=== PATIENT | male | born 1960 | race American Indian/Alaskan Native ===

== ENCOUNTER 2016-08-15 01:31 | Emergency (ER) | payer MEDICARE | END 2016-08-15 02:15 | disposition left against medical advice (07) | LOC: ED 01:31 | DX: K08.89 Other specified disorders of teeth and supporting structures (principal); Z53.21 Procedure and treatment not carried out due to patient leaving prior to being seen by health care provider ==

== ENCOUNTER 2017-07-16 11:01 | Outpatient (CLI) | payer MEDICARE ==
[2017-07-16 11:56] LABS: BUN/Creatinine Ratio 10; Blood Urea Nitrogen 11 mg/dL (9-20); Calcium 8.6 mg/dL (8.4-10.2); Hemolysis Index 6
== END 2017-07-16 11:02 | disposition home or self-care (01) ==
LOC: LAB 11:01
PROVIDERS: ATTEND Internal Medicine Nephrology
DX: N18.3 Chronic kidney disease, stage 3 (moderate) (principal)
CPT/HCPCS: 36415; 80048

== ENCOUNTER 2018-11-04 08:53 | Inpatient (IN) | payer MEDICARE ==
[2018-11-04 10:04] LABS: Basophils # (Auto) 0.1 K/mm3 (0.0-0.1); Basophils % (Auto) 0.8 % (0.0-1.8); Eosinophils % (Auto) 0.6 % (0.0-4.3); Hematocrit 45.5 % (35.5-45.6); Hemoglobin 15.4 gm/dl (11.8-15.2); Lymphocytes # (Auto) 0.7 K/mm3 (1.2-5.4); Mean Corpuscular HGB Conc 34 % (32-34); Mean Corpuscular Volume 89 fl (84-94); Monocytes # (Auto) 0.3 K/mm3 (0.0-0.8); Monocytes % (Auto) 4.4 % (0.0-7.3); Platelet Count 244 K/mm3 (140-440); Red Blood Count 5.13 M/mm3 (3.65-5.03); Red Cell Distribution Width 13.3 % (13.2-15.2)
[2018-11-04 10:26] LABS: BUN/Creatinine Ratio 16; Blood Urea Nitrogen 18 mg/dL (9-20); Calcium 8.6 mg/dL (8.4-10.2); Hemolysis Index 15
[2018-11-04 10:40] LABS: INR 1.01 (0.87-1.13); Partial Thromboplastin Time 23.6 Sec. (24.2-36.6)
[2018-11-04 10:45] LABS: Alanine Aminotransferase 15 units/L (7-56); Albumin 4.2 g/dL (3.9-5); BUN/Creatinine Ratio 15; Blood Urea Nitrogen 18 mg/dL (9-20); Calcium 8.8 mg/dL (8.4-10.2); Hemolysis Index 8
[2018-11-04 10:52] LABS: Bilirubin,Urine NEG (Negative); Blood,Urine NEG (Negative); Color,Urine Yellow (Yellow); Mucus,Urine FEW /HPF; Protein,Urine <15 mg/dL mg/dL (Negative); Urobilinogen,Urine < 2.0 mg/dL (<2.0)
--- NOTE | 2018-11-04 10:52 | XRay Report ---
Single view chest: History: Altered mental status. Findings: Normal cardiomediastinal silhouette. Trachea is midline. Suspicion of emphysema. No acute changes Impression: Suspicion of COPD. No acute changes.
--- NOTE | 2018-11-04 10:58 | Cat Scan Report ---
CT scan of the IV contrast: History: Altered mental status. Findings Ventricles are normal in size and midline in location. Cavum septum pellucidum noted. Single small chronic lacunar infarct right and left basal ganglia. Evidence of mild cortical atrophy. No acute ischemia, hemorrhage or mass. No extra-axial fluid collection. Impression: Mild cortical atrophy. Chronic lacunar infarct right and left ganglia no acute intracranial abnormality.
--- NOTE | 2018-11-04 12:32 | Emergency Department Report ---
ED General Adult HPI - General Chief complaint: Altered Mental Status Stated complaint: WEAKNESS/AMS Time Seen by Provider: 11/04/18 09:30 Source: patient, EMS Mode of arrival: Stretcher Limitations: Physical Limitation - History of Present Illness Initial comments: Patient presents to the emergency department from a local skilled nursing for left- sided weakness. The patient has had a previous stroke in the past where he has suffered right sided deficits as a result of that. The patient states the symptoms have improved since arrival to the ED. Patient denies any chest pain, shortness breath, headache. -: Sudden Radiation: non-radiation Severity scale (0 -10): 0 Consistency: other (now improved) Improves with: none Associated Symptoms: denies other symptoms Treatments Prior to Arrival: none - Related Data Home Medications Medication Instructions Recorded Confirmed Last Taken ALBUTEROL Inhaler(NF) [VENTOLIN 1 puff IH Q6H PRN 11/04/18 11/04/18 Unknown Inhaler(NF)] Acetaminophen/Codeine [Tylenol 1 tab PO Q4HR PRN 11/04/18 11/04/18 Unknown /Codeine # 3 tab] Amantadine [Symmetrel] 100 mg PO BID 11/04/18 11/04/18 Unknown Ammonium Lactate [Lac-Hydrin 1 applicatio TP BID 11/04/18 11/04/18 Unknown Lotion] Clotrimazole/Betamethasone Dip 1 applic TP BID 11/04/18 11/04/18 Unknown [Clotrimazole-Betamethasone Lotion] Ferrous Sulfate [Feosol] 325 mg PO QDAY 11/04/18 11/04/18 Unknown Ibuprofen 800 mg PO Q4H PRN 11/04/18 11/04/18 Unknown Terbinafine HCl [LamiSIL] 250 mg PO DAILY 11/04/18 11/04/18 Unknown amLODIPine [Norvasc] 5 mg PO DAILY 11/04/18 11/04/18 Unknown Allergies Allergy/AdvReac Type Severity Reaction Status Date / Time No Known Allergies Allergy Unverified 06/27/16 14:39 ED Review of Systems ROS: Stated complaint: WEAKNESS/AMS Other details as noted in HPI Comment: All other systems reviewed and negative Constitutional: denies: chills, fever Eyes: denies: eye pain, eye discharge, vision change ENT: denies: ear pain, throat pain Respiratory: denies: cough, shortness of breath, wheezing Cardiovascular: denies: chest pain, palpitations Endocrine: no symptoms reported Gastrointestinal: denies: abdominal pain, nausea, diarrhea Genitourinary: denies: urgency, dysuria Musculoskeletal: denies: back pain, joint swelling, arthralgia Skin: denies: rash, lesions Neurological: weakness, numbness. denies: headache, paresthesias Psychiatric: denies: anxiety, depression Hematological/Lymphatic: denies: easy bleeding, easy bruising ED Past Medical Hx - Past Medical History Previous Medical History?: Yes Hx Hypertension: Yes Hx CVA: Yes (right sided weakness) Hx Diabetes: Yes - Surgical History Past Surgical History?: No - Social History Smoking Status: Former Smoker - Medications Home Medications: Home Medications Medication Instructions Recorded Confirmed Last Taken Type ALBUTEROL Inhaler(NF) [VENTOLIN 1 puff IH Q6H PRN 11/04/18 11/04/18 Unknown History Inhaler(NF)] Acetaminophen/Codeine [Tylenol 1 tab PO Q4HR PRN 11/04/18 11/04/18 Unknown History /Codeine # 3 tab] Amantadine [Symmetrel] 100 mg PO BID 11/04/18 11/04/18 Unknown History Ammonium Lactate [Lac-Hydrin 1 applicatio TP BID 11/04/18 11/04/18 Unknown History Lotion] Clotrimazole/Betamethasone Dip 1 applic TP BID 11/04/18 11/04/18 Unknown History [Clotrimazole-Betamethasone Lotion] Ferrous Sulfate [Feosol] 325 mg PO QDAY 11/04/18 11/04/18 Unknown History Ibuprofen 800 mg PO Q4H PRN 11/04/18 11/04/18 Unknown History Terbinafine HCl [LamiSIL] 250 mg PO DAILY 11/04/18 11/04/18 Unknown History amLODIPine [Norvasc] 5 mg PO DAILY 11/04/18 11/04/18 Unknown History ED Physical Exam - General Limitations: Physical Limitation General appearance: alert, in no apparent distress - Head Head exam: Present: atraumatic, normocephalic - Eye Eye exam: Present: normal appearance, PERRL, EOMI - ENT ENT exam: Present: mucous membranes moist - Neck Neck exam: Present: normal inspection - Respiratory Respiratory exam: Present: normal lung sounds bilaterally. Absent: respiratory distress, wheezes, rales - Cardiovascular Cardiovascular Exam: Present: regular rate, normal rhythm. Absent: systolic murmur, diastolic murmur, rubs, gallop - GI/Abdominal GI/Abdominal exam: Present: soft, normal bowel sounds. Absent: distended, tenderness - Rectal Rectal exam: Present: deferred - Extremities Exam Extremities exam: Present: normal inspection - Back Exam Back exam: Present: normal inspection - Neurological Exam Neurological exam: Present: alert, oriented X3, other (patient has prior right- sided weakness from previous stroke. Patient has left sided weakness with 4/5 strength in the upper extremity on left side) - Psychiatric Psychiatric exam: Present: normal affect, normal mood - Skin Skin exam: Present: warm, dry, intact, normal color. Absent: rash ED Course Vital Signs 11/04/18 11/04/18 11/04/18 09:00 09:01 09:30 Temperature 97.8 F Pulse Rate 51 L 68 45 L Respiratory 11 L 18 15 Rate Blood Pressure 137/90 137/90 145/91 O2 Sat by Pulse 100 100 Oximetry 11/04/18 11/04/18 11/04/18 10:00 10:31 11:00 Temperature Pulse Rate 67 73 56 L Respiratory 12 14 11 L Rate Blood Pressure 142/93 153/104 141/97 O2 Sat by Pulse 100 100 Oximetry 11/04/18 11:30 Temperature Pulse Rate 76 Respiratory 11 L Rate Blood Pressure 147/92 O2 Sat by Pulse Oximetry ED Medical Decision Making - Lab Data Result diagrams: 11/04/18 09:51 11/04/18 10:07 Lab Results 11/04/18 11/04/18 11/04/18 Range/Units 09:16 09:51 09:51 WBC 6.7 (4.5-11.0) K/mm3 RBC 5.13 H (3.65-5.03) M/mm3 Hgb 15.4 H (11.8-15.2) gm/dl Hct 45.5 (35.5-45.6) % MCV 89 (84-94) fl MCH 30 (28-32) pg MCHC 34 (32-34) % RDW 13.3 (13.2-15.2) % Plt Count 244 (140-440) K/mm3 Lymph % (Auto) 11.0 L (13.4-35.0) % Owen % (Auto) 4.4 (0.0-7.3) % Eos % (Auto) 0.6 (0.0-4.3) % Baso % (Auto) 0.8 (0.0-1.8) % Lymph # 0.7 L (1.2-5.4) K/mm3 Owen # 0.3 (0.0-0.8) K/mm3 Eos # 0.0 (0.0-0.4) K/mm3 Baso # 0.1 (0.0-0.1) K/mm3 Seg Neutrophils % 83.2 H (40.0-70.0) % Seg Neutrophils # 5.6 (1.8-7.7) K/mm3 PT (12.2-14.9) Sec. INR (0.87-1.13) APTT (24.2-36.6) Sec. Sodium 138 (137-145) mmol/L Potassium 4.1 (3.6-5.0) mmol/L Chloride 100.6 (98-107) mmol/L Carbon Dioxide 26 (22-30) mmol/L Anion Gap 16 mmol/L BUN 18 (9-20) mg/dL Creatinine 1.1 (0.8-1.5) mg/dL Estimated GFR > 60 ml/min BUN/Creatinine Ratio 16 % Glucose 130 H (75-100) mg/dL POC Glucose 100 (70-105) Lactic Acid (0.7-2.0) mmol/L Calcium 8.6 (8.4-10.2) mg/dL Total Bilirubin (0.1-1.2) mg/dL AST (5-40) units/L ALT (7-56) units/L Alkaline Phosphatase (35-129) units/L Ammonia (25-60) umol/L Troponin T (0.00-0.029) ng/mL Total Protein (6.3-8.2) g/dL Albumin (3.9-5) g/dL Albumin/Globulin Ratio % Urine Color (Yellow) Urine Turbidity (Clear) Urine pH (5.0-7.0) Ur Specific Franklin (1.003-1.030) Urine Protein (Negative) mg/dL Urine Glucose (UA) (Negative) mg/dL Urine Ketones (Negative) mg/dL Urine Blood (Negative) Urine Nitrite (Negative) Urine Bilirubin (Negative) Urine Urobilinogen (<2.0) mg/dL Ur Leukocyte Esterase (Negative) Urine WBC (Auto) (0.0-6.0) /HPF Urine RBC (Auto) (0.0-6.0) /HPF Urine Mucus /HPF Salicylates (2.8-20.0) mg/dL Acetaminophen (10.0-30.0) ug/mL 11/04/18 11/04/18 11/04/18 Range/Units 10:07 10:07 10:07 WBC (4.5-11.0) K/mm3 RBC (3.65-5.03) M/mm3 Hgb (11.8-15.2) gm/dl Hct (35.5-45.6) % MCV (84-94) fl MCH (28-32) pg MCHC (32-34) % RDW (13.2-15.2) % Plt Count (140-440) K/mm3 Lymph % (Auto) (13.4-35.0) % Owen % (Auto) (0.0-7.3) % Eos % (Auto) (0.0-4.3) % Baso % (Auto) (0.0-1.8) % Lymph # (1.2-5.4) K/mm3 Owen # (0.0-0.8) K/mm3 Eos # (0.0-0.4) K/mm3 Baso # (0.0-0.1) K/mm3 Seg Neutrophils % (40.0-70.0) % Seg Neutrophils # (1.8-7.7) K/mm3 PT 13.9 (12.2-14.9) Sec. INR 1.01 (0.87-1.13) APTT 23.6 L (24.2-36.6) Sec. Sodium 140 (137-145) mmol/L Potassium 4.7 (3.6-5.0) mmol/L Chloride 102.8 (98-107) mmol/L Carbon Dioxide 27 (22-30) mmol/L Anion Gap 15 mmol/L BUN 18 (9-20) mg/dL Creatinine 1.2 (0.8-1.5) mg/dL Estimated GFR > 60 ml/min BUN/Creatinine Ratio 15 % Glucose 127 H (75-100) mg/dL POC Glucose (70-105) Lactic Acid 1.40 (0.7-2.0) mmol/L Calcium 8.8 (8.4-10.2) mg/dL Total Bilirubin 0.50 (0.1-1.2) mg/dL AST 17 (5-40) units/L ALT 15 (7-56) units/L Alkaline Phosphatase 141 H (35-129) units/L Ammonia (25-60) umol/L Troponin T < 0.010 (0.00-0.029) ng/mL Total Protein 6.8 (6.3-8.2) g/dL Albumin 4.2 (3.9-5) g/dL Albumin/Globulin Ratio 1.6 % Urine Color (Yellow) Urine Turbidity (Clear) Urine pH (5.0-7.0) Ur Specific Franklin (1.003-1.030) Urine Protein (Negative) mg/dL Urine Glucose (UA) (Negative) mg/dL Urine Ketones (Negative) mg/dL Urine Blood (Negative) Urine Nitrite (Negative) Urine Bilirubin (Negative) Urine Urobilinogen (<2.0) mg/dL Ur Leukocyte Esterase (Negative) Urine WBC (Auto) (0.0-6.0) /HPF Urine RBC (Auto) (0.0-6.0) /HPF Urine Mucus /HPF Salicylates (2.8-20.0) mg/dL Acetaminophen (10.0-30.0) ug/mL 11/04/18 11/04/18 11/04/18 Range/Units 10:07 10:07 10:07 WBC (4.5-11.0) K/mm3 RBC (3.65-5.03) M/mm3 Hgb (11.8-15.2) gm/dl Hct (35.5-45.6) % MCV (84-94) fl MCH (28-32) pg MCHC (32-34) % RDW (13.2-15.2) % Plt Count (140-440) K/mm3 Lymph % (Auto) (13.4-35.0) % Owen % (Auto) (0.0-7.3) % Eos % (Auto) (0.0-4.3) % Baso % (Auto) (0.0-1.8) % Lymph # (1.2-5.4) K/mm3 Owen # (0.0-0.8) K/mm3 Eos # (0.0-0.4) K/mm3 Baso # (0.0-0.1) K/mm3 Seg Neutrophils % (40.0-70.0) % Seg Neutrophils # (1.8-7.7) K/mm3 PT (12.2-14.9) Sec. INR (0.87-1.13) APTT (24.2-36.6) Sec. Sodium (137-145) mmol/L Potassium (3.6-5.0) mmol/L Chloride (98-107) mmol/L Carbon Dioxide (22-30) mmol/L Anion Gap mmol/L BUN (9-20) mg/dL Creatinine (0.8-1.5) mg/dL Estimated GFR ml/min BUN/Creatinine Ratio % Glucose (75-100) mg/dL POC Glucose (70-105) Lactic Acid (0.7-2.0) mmol/L Calcium (8.4-10.2) mg/dL Total Bilirubin (0.1-1.2) mg/dL AST (5-40) units/L ALT (7-56) units/L Alkaline Phosphatase (35-129) units/L Ammonia 25.0 (25-60) umol/L Troponin T (0.00-0.029) ng/mL Total Protein (6.3-8.2) g/dL Albumin (3.9-5) g/dL Albumin/Globulin Ratio % Urine Color (Yellow) Urine Turbidity (Clear) Urine pH (5.0-7.0) Ur Specific Franklin (1.003-1.030) Urine Protein (Negative) mg/dL Urine Glucose (UA) (Negative) mg/dL Urine Ketones (Negative) mg/dL Urine Blood (Negative) Urine Nitrite (Negative) Urine Bilirubin (Negative) Urine Urobilinogen (<2.0) mg/dL Ur Leukocyte Esterase (Negative) Urine WBC (Auto) (0.0-6.0) /HPF Urine RBC (Auto) (0.0-6.0) /HPF Urine Mucus /HPF Salicylates < 0.3 L (2.8-20.0) mg/dL Acetaminophen < 5.0 L (10.0-30.0) ug/mL 11/04/18 Range/Units Unknown WBC (4.5-11.0) K/mm3 RBC (3.65-5.03) M/mm3 Hgb (11.8-15.2) gm/dl Hct (35.5-45.6) % MCV (84-94) fl MCH (28-32) pg MCHC (32-34) % RDW (13.2-15.2) % Plt Count (140-440) K/mm3 Lymph % (Auto) (13.4-35.0) % Owen % (Auto) (0.0-7.3) % Eos % (Auto) (0.0-4.3) % Baso % (Auto) (0.0-1.8) % Lymph # (1.2-5.4) K/mm3 Owen # (0.0-0.8) K/mm3 Eos # (0.0-0.4) K/mm3 Baso # (0.0-0.1) K/mm3 Seg Neutrophils % (40.0-70.0) % Seg Neutrophils # (1.8-7.7) K/mm3 PT (12.2-14.9) Sec. INR (0.87-1.13) APTT (24.2-36.6) Sec. Sodium (137-145) mmol/L Potassium (3.6-5.0) mmol/L Chloride (98-107) mmol/L Carbon Dioxide (22-30) mmol/L Anion Gap mmol/L BUN (9-20) mg/dL Creatinine (0.8-1.5) mg/dL Estimated GFR ml/min BUN/Creatinine Ratio % Glucose (75-100) mg/dL POC Glucose (70-105) Lactic Acid (0.7-2.0) mmol/L Calcium (8.4-10.2) mg/dL Total Bilirubin (0.1-1.2) mg/dL AST (5-40) units/L ALT (7-56) units/L Alkaline Phosphatase (35-129) units/L Ammonia (25-60) umol/L Troponin T (0.00-0.029) ng/mL Total Protein (6.3-8.2) g/dL Albumin (3.9-5) g/dL Albumin/Globulin Ratio % Urine Color Yellow (Yellow) Urine Turbidity Clear (Clear) Urine pH 5.0 (5.0-7.0) Ur Specific Franklin 1.012 (1.003-1.030) Urine Protein <15 mg/dl (Negative) mg/dL Urine Glucose (UA) Neg (Negative) mg/dL Urine Ketones Tr (Negative) mg/dL Urine Blood Neg (Negative) Urine Nitrite Neg (Negative) Urine Bilirubin Neg (Negative) Urine Urobilinogen < 2.0 (<2.0) mg/dL Ur Leukocyte Esterase Neg (Negative) Urine WBC (Auto) 1.0 (0.0-6.0) /HPF Urine RBC (Auto) 2.0 (0.0-6.0) /HPF Urine Mucus Few /HPF Salicylates (2.8-20.0) mg/dL Acetaminophen (10.0-30.0) ug/mL - Radiology Data Radiology results: report reviewed Critical care attestation.: If time is entered above; I have spent that time in minutes in the direct care of this critically ill patient, excluding procedure time. ED Disposition Clinical Impression: Left-sided weakness Disposition: -09 OP ADMIT IP TO THIS HOSP Is pt being admited?: Yes Does the pt Need Aspirin: Yes Condition: Fair Referrals: MADDY FORTUNE MD [Primary Care Provider] - 3-5 Days - Assessment Assessment Interval: Baseline - Level of Consciousness 1a. Level of Consciousness: alert/keenly responsive - LOC Questions 1b. LOC Questions: answers both correctly - LOC Command 1c. LOC Commands: performs tasks correctly - Best Gaze 2. Best Gaze: normal - Visual 3. Visual: no visual loss - Facial Palsy 4. Facial Palsy: normal symmetrical movement - Motor Arm 5a. Motor Arm Left: no drift 5b. Motor Arm Right: no gravity effort - Motor Leg 6a. Motor Leg Left: no drift 6b. Motor Leg Right: no gravity effort - Limb Ataxia 7. Limb Ataxia: absent - Sensory 8. Sensory: normal - Best Language 9. Best Language: mild/moderate aphasia - Dysarthria 10. Dysarthria: mild/moderate dysarthria - Extinction and Inattention 11. Extinction/Inattention: no abnormality - Scoring Total Score: 8 Stroke Severity: Moderate Stroke
[2018-11-04] MEDS ORDERED: BABY ASPIRIN PO ONE (13:06)
--- NOTE | 2018-11-04 13:07 | History and Physical Report ---
History of Present Illness Chief complaint: His left arm is weak History of present illness: 58 YO Male Personal Assisted resident with CVA complicated by RHP and Dysarthria, HTN, DM, Debility presents to ED for evaluation. Pt has difficulty speaking, but his sister is at bedside and assists with communication. As per sister, the patient experienced weakness in his Left arm and increased in difficulty speaking, as well as a delayed verbal response. Pt was in his usual state of health at bedtime around 2100 hrs. Pt and [facility] staff are unsure of time of onset of symptoms, but patient was noticed to have symptoms around breakfast time this morning. EMS notified, and upon arrival the patient was found to have neurologic deficit and transported to [facility]. Pt seen and evaluated in ED and found to have symptoms consistent with CVA. Pt adnitted to telemetry and initiated on CVA protocol. Neurology team consulted in ED. Pt is outside therapeutic window for TPA at time of my exam. No reports of fever, chills, CP, Palpitations, Seizures, vertigo, Past History Past Medical History: diabetes, hypertension, hyperlipidemia Past Surgical History: No surgical history, Other (reviewed) Social history: single. denies: smoking, alcohol abuse, prescription drug abuse Family history: diabetes, hypertension Medications and Allergies Allergies Allergy/AdvReac Type Severity Reaction Status Date / Time No Known Allergies Allergy Unverified 06/27/16 14:39 Home Medications Medication Instructions Recorded Confirmed Last Taken Type ALBUTEROL Inhaler(NF) [VENTOLIN 1 puff IH Q6H PRN 11/04/18 11/04/18 Unknown History Inhaler(NF)] Acetaminophen/Codeine [Tylenol 1 tab PO Q4HR PRN 11/04/18 11/04/18 Unknown History /Codeine # 3 tab] Amantadine [Symmetrel] 100 mg PO BID 11/04/18 11/04/18 Unknown History Ammonium Lactate [Lac-Hydrin 1 applicatio TP BID 11/04/18 11/04/18 Unknown History Lotion] Clotrimazole/Betamethasone Dip 1 applic TP BID 11/04/18 11/04/18 Unknown History [Clotrimazole-Betamethasone Lotion] Ferrous Sulfate [Feosol] 325 mg PO QDAY 11/04/18 11/04/18 Unknown History Ibuprofen 800 mg PO Q4H PRN 11/04/18 11/04/18 Unknown History Terbinafine HCl [LamiSIL] 250 mg PO DAILY 11/04/18 11/04/18 Unknown History amLODIPine [Norvasc] 5 mg PO DAILY 11/04/18 11/04/18 Unknown History Review of Systems ROS unobtainable: due to mental status Exam - Constitutional Vitals: Temp Pulse Resp BP Pulse Ox 97.8 F 76 11 L 147/92 100 11/04/18 09:01 11/04/18 11:30 11/04/18 11:30 11/04/18 11:30 11/04/18 10:31 General appearance: Present: mild distress - EENT Eyes: Present: PERRL ENT: hearing intact, clear oral mucosa - Neck Neck: Present: supple, normal ROM - Respiratory Respiratory effort: normal Respiratory: bilateral: CTA - Cardiovascular Heart Sounds: Present: S1 & S2. Absent: rub, click - Extremities Extremities: pulses symmetrical, No edema Peripheral Pulses: within normal limits - Abdominal General gastrointestinal: Present: soft, non-tender, non-distended, normal bowel sounds Male genitourinary: Present: normal - Integumentary Integumentary: Present: clear, dry - Musculoskeletal Musculoskeletal: right sided weakness, left sided weakness - Psychiatric Psychiatric: no intact judgment & insight, no memory intact - Neurologic Neurologic: CNII-XII intact, focal deficits, no moves all extremities, no gait normal Results - Labs CBC & Chem 7: 11/04/18 09:51 11/04/18 10:07 Labs: Abnormal lab results 11/04/18 11/04/18 11/04/18 Range/Units 09:51 09:51 10:07 RBC 5.13 H (3.65-5.03) M/mm3 Hgb 15.4 H (11.8-15.2) gm/dl Lymph % (Auto) 11.0 L (13.4-35.0) % Lymph # 0.7 L (1.2-5.4) K/mm3 Seg Neutrophils % 83.2 H (40.0-70.0) % APTT 23.6 L (24.2-36.6) Sec. Glucose 130 H (75-100) mg/dL Alkaline Phosphatase (35-129) units/L Salicylates (2.8-20.0) mg/dL Acetaminophen (10.0-30.0) ug/mL 11/04/18 11/04/18 11/04/18 Range/Units 10:07 10:07 10:07 RBC (3.65-5.03) M/mm3 Hgb (11.8-15.2) gm/dl Lymph % (Auto) (13.4-35.0) % Lymph # (1.2-5.4) K/mm3 Seg Neutrophils % (40.0-70.0) % APTT (24.2-36.6) Sec. Glucose 127 H (75-100) mg/dL Alkaline Phosphatase 141 H (35-129) units/L Salicylates < 0.3 L (2.8-20.0) mg/dL Acetaminophen < 5.0 L (10.0-30.0) ug/mL Assessment and Plan - Patient Problems (1) CVA (cerebral vascular accident) Current Visit: Yes Status: Acute Qualifiers: Precerebral and cerebral artery: middle cerebral artery Laterality of affected vessel: left Plan to address problem: Admit to telemetry: CVA protocol: CT Head, MRI Brain, MRA Brain, Echo, Carotid Doppler PT/OT/Speech Therapy, Seizure Precautions, Aspiration precautions, Antiplatelet therapy, lipid panel, statin therapy (2) Right hemiparesis Current Visit: Yes Status: Acute Plan to address problem: PT consulted, supportive care. (3) HTN (hypertension) Current Visit: Yes Status: Acute Qualifiers: Hypertension type: essential hypertension Qualified Code(s): I10 - Essential (primary) hypertension Plan to address problem: Monitor BP q shift, continue medical management, (4) HLD (hyperlipidemia) Current Visit: Yes Status: Acute Qualifiers: Hyperlipidemia type: mixed hyperlipidemia Qualified Code(s): E78.2 - Mixed hyperlipidemia Plan to address problem: Statin therapy, lipid panel, low cholesterol diet (5) DVT prophylaxis Current Visit: Yes Status: Acute Plan to address problem: SCD to BLE while in bed,
[2018-11-04] MEDS ORDERED: MILK OF MAGNESIA PO PRN (13:08)
[2018-11-04] MEDS ORDERED: ZOFRAN IV PRN (13:08)
[2018-11-04] MEDS ORDERED: DULCOLAX PR PRN (13:08)
[2018-11-04] MEDS ORDERED: TYLENOL PO PRN (13:08)
[2018-11-04] MEDS ORDERED: PHENERGAN PR PRN (13:08)
[2018-11-04] MEDS ORDERED: REGLAN PO PRN (13:08)
[2018-11-04] MEDS ORDERED: PROVENTIL IH PRN (13:08)
[2018-11-04] MEDS ORDERED: TYLENOL #3 PO PRN (13:14)
[2018-11-04] MEDS ORDERED: IBUPROFEN PO PRN (13:14)
--- NOTE | 2018-11-04 15:55 | Magnetic Resonance Report ---
MRI BRAIN WITHOUT CONTRAST: 11/04/18 13:08:00 CLINICAL: Stroke. COMPARISON: 11/04/18 CT head TECHNIQUE: Axial diffusion, T1, T2, gradient echo T2*, coronal and axial FLAIR and sagittal T1 sequences on a 1.5 [place] magnet. FINDINGS: The ventricles and sulci are large for age. Both cerebral and cerebellar sulci enlarged and there is greater enlargement of the left temporal lobe sulci. Restricted diffusion involves the inferior medial left cerebellum and measures 1.8 cm. A 3 mm focus of restricted diffusion in the posterior left medulla. No other restricted diffusion. No mass or mass effect. No hemorrhage, edema or extra-axial collection. Normal pituitary and optic chiasm. The left midbrain is small and demonstrates heterogeneous signal on FLAIR and hyperintense signal on T2. Bilateral basal ganglia chronic lacunar infarcts. Extensive bilateral subcortical multifocal white matter hyperintensities FLAIR and T2. Bilateral basal ganglia chronic lacunar infarcts. Intact vascular flow voids. Normal sinuses. The orbits, and soft tissues are normal. Normal calvarium and skull base. IMPRESSION: 1. Acute/subacute nonhemorrhagic infarcts involving the left inferior medial cerebellum and the left medulla oblongata. 2. Old left temporal lobe ischemia with Wallerian degeneration of the left brainstem. 3. Moderate cerebral and cerebellar cortical atrophy and extensive chronic white matter microangiopathy.
--- NOTE | 2018-11-04 16:06 | Magnetic Resonance Report ---
MRA HEAD WITHOUT CONTRAST: 11/04/18 13:08:00 CLINICAL: Stroke. TECHNIQUE: Axial 3-D [id number] MR angiography of the [place] with review of axial source images. FINDINGS: Intact [place] with no aneurysm or high-grade stenosis. Symmetric blood flow in the anterior, middle and posterior cerebral arteries. Normal basilar and right vertebral arteries. No left vertebral artery identified. 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
[2018-11-04 16:24] LABS: Chol/HDL Ratio 2.75 %
--- NOTE | 2018-11-04 16:47 | Vascular Lab Report ---
PROCEDURE: VL CAROTID DUPLEX BILAT TECHNIQUE: Ultrasound of the bilateral carotid arteries. Reported ICA Stenosis % per the NASCET crite ludmila. HISTORY: Previous stroke , hypertension and right-sided weakness COMPARISONS: None FINDINGS: PLAQUE DISTRIBUTION: There is minimal plaque formation in the right carotid bulb extending into the o rigin and proximal segment of the internal carotid artery. Mild plaque formation in the proximal left internal carotid artery is noted. VELOCITIES: RIGHT ICA peak systolic velocity (cm/sec): 82 ICA end diastolic velocity (cm/sec): 34 CCA peak systolic velocity (cm/sec): 58 ECA peak systolic velocity (cm/sec): 44 ICA/CCA systolic velocity ratio (cm/sec): 1.4 Right vertebral: Antegrade ICA STENOSIS ESTIMATION: < 50 % LEFT ICA peak systolic velocity (cm/sec): 61 ICA end diastolic velocity (cm/sec): 24 CCA peak systolic velocity (cm/sec): 56 ECA peak systolic velocity (cm/sec): 29 ICA/CCA systolic velocity ratio (cm/sec): 1.09 Left vertebral: Antegrade ICA STENOSIS ESTIMATION: < 50 % IMPRESSION: No clinically significant areas of stenosis noted bilaterally. ICA Stenosis % per the NASCET criteria is < 50 % on the right and < 50 % on the left. This document is electronically signed by Inés Easton MD., Nov 04 2018 04:46:13 PM ET
--- NOTE | 2018-11-04 17:43 | Consultation ---
History of Present Illness Consult date: 11/04/18 Chief complaint: worsening slurred speech History of present illness: This is a 58 YO M with RHP since previous stroke in 2013 who was noted to be "different" by his H so he was transpoprted to the ED for evaluation. Sister is at bedside and gives the history. Pt is compliant with meds per the sister. Past History Past Medical History: diabetes, hypertension, hyperlipidemia Past Surgical History: No surgical history, Other (reviewed) Social history: single. denies: smoking, alcohol abuse, prescription drug abuse Family history: diabetes, hypertension Medications and Allergies Allergies Allergy/AdvReac Type Severity Reaction Status Date / Time No Known Allergies Allergy Unverified 06/27/16 14:39 Home Medications Medication Instructions Recorded Confirmed Last Taken Type ALBUTEROL Inhaler(NF) [VENTOLIN 1 puff IH Q6H PRN 11/04/18 11/04/18 Unknown History Inhaler(NF)] Acetaminophen/Codeine [Tylenol 1 tab PO Q4HR PRN 11/04/18 11/04/18 Unknown History /Codeine # 3 tab] Amantadine [Symmetrel] 100 mg PO BID 11/04/18 11/04/18 Unknown History Ammonium Lactate [Lac-Hydrin 1 applicatio TP BID 11/04/18 11/04/18 Unknown History Lotion] Clotrimazole/Betamethasone Dip 1 applic TP BID 11/04/18 11/04/18 Unknown History [Clotrimazole-Betamethasone Lotion] Ferrous Sulfate [Feosol] 325 mg PO QDAY 11/04/18 11/04/18 Unknown History Ibuprofen 800 mg PO Q4H PRN 11/04/18 11/04/18 Unknown History Terbinafine HCl [LamiSIL] 250 mg PO DAILY 11/04/18 11/04/18 Unknown History amLODIPine [Norvasc] 5 mg PO DAILY 11/04/18 11/04/18 Unknown History Active Meds: Active Medications Acetaminophen (Tylenol) 650 mg PO Q4H PRN PRN Reason: Pain, Mild (1-3) Acetaminophen/Codeine Phosphate (Tylenol #3) 1 tab PO Q4HR PRN PRN Reason: Pain Albuterol (Proventil) 2.5 mg IH Q3HRT PRN PRN Reason: Shortness Of Breath Amantadine HCl (Symmetrel) 100 mg PO BID [facility] Aspirin (Aspirin) 325 mg PO QDAY [facility] Atorvastatin Calcium (Lipitor) 40 mg PO QHS MAK Bisacodyl (Dulcolax) 10 mg MO QDAY PRN PRN Reason: Constipation Clotrimazole (Clotrimazole/Betamethasone) 1 applic TP BID [facility] Enoxaparin Sodium (Lovenox) 40 mg SUB-Q QDAY@2200 MAK Ferrous Sulfate (Feosol) 325 mg PO QDAY MAK Ibuprofen (Motrin) 800 mg PO Q4H PRN PRN Reason: Pain, Moderate (4-6) Lactic Acid (Lac-Hydrin) 1 applic TP BID [facility] Magnesium Hydroxide (Milk Of Magnesia) 30 ml PO Q4H PRN PRN Reason: Constipation Metoclopramide HCl (Reglan) 10 mg PO Q6H PRN PRN Reason: Nausea And Vomiting Miscellaneous Medication (Terbinafine Hcl [Lamisil]) 250 mg PO DAILY [facility] Ondansetron HCl (Zofran) 4 mg IV Q8H PRN PRN Reason: Nausea And Vomiting Last Admin: 11/04/18 17:26 Dose: 4 mg Documented by: Promethazine HCl (Phenergan) 25 mg MO Q6H PRN PRN Reason: Nausea And Vomiting Sodium Chloride (Sodium Chloride Flush Syringe 10 Ml) 10 ml IV PRN PRN PRN Reason: LINE FLUSH Review of Systems Neurological: other (dysarthria) Physical Examination - Vital Signs Vital Signs: Vital Signs Pulse Resp BP 51 L 11 L 137/90 11/04/18 09:00 11/04/18 09:00 11/04/18 09:00 - Constitutional General appearance: comfortable - EENT EENT: Present: PERRL, mucous membranes moist - Respiratory Respiratory: Present: lungs clear - Gastrointestinal Gastrointestinal: Present: normoactive bowel sounds - Integumentary Integumentary: Present: normal - Neurologic Speech examination: intact Motor examination - right side: 15: biceps, triceps, wrist flexion, wrist extension, physician assistant surgery, hip flexors, knee extensors, dorsiflexion, toe extension (EHL), plantarflexion Motor examination - left side: 45: biceps, triceps, wrist flexion, wrist extension, physician assistant surgery, hip flexors, knee extensors, dorsiflexion, toe extension (EHL), plantarflexion Reflex and gait examination: other (wheelchair bound) - Level of Consciousness 1a. Level of Consciousness: alert/keenly responsive - LOC Questions 1b. LOC Questions: answers both correctly - LOC Command 1c. LOC Commands: performs tasks correctly - Best Gaze 2. Best Gaze: normal - Visual 3. Visual: no visual loss - Facial Palsy 4. Facial Palsy: minor paralysis - Motor Arm 5a. Motor Arm Left: drift 5b. Motor Arm Right: no movement - Motor Leg 6a. Motor Leg Left: drift 6b. Motor Leg Right: no gravity effort - Limb Ataxia 7. Limb Ataxia: present 2 limbs - Sensory 8. Sensory: normal - Best Language 9. Best Language: mute/global aphasia - Dysarthria 10. Dysarthria: mild/moderate dysarthria - Extinction and Inattention 11. Extinction/Inattention: no abnormality - Scoring Total Score: 16 Stroke Severity: Moderate to Severe Stroke Results - Laboratory Findings CBC and BMP: 11/04/18 09:51 11/04/18 10:07 Abnormal Lab Findings: Abnormal Labs 11/04/18 11/04/18 11/04/18 09:51 09:51 10:07 RBC 5.13 H Hgb 15.4 H Lymph % (Auto) 11.0 L Lymph # 0.7 L Seg Neutrophils % 83.2 H APTT 23.6 L Glucose 130 H Alkaline Phosphatase HDL Cholesterol Salicylates Acetaminophen 11/04/18 11/04/18 11/04/18 10:07 10:07 10:07 RBC Hgb Lymph % (Auto) Lymph # Seg Neutrophils % APTT Glucose 127 H Alkaline Phosphatase 141 H HDL Cholesterol Salicylates < 0.3 L Acetaminophen < 5.0 L 11/04/18 13:13 RBC Hgb Lymph % (Auto) Lymph # Seg Neutrophils % APTT Glucose Alkaline Phosphatase HDL Cholesterol 62 H Salicylates Acetaminophen - Diagnostic Findings Additional findings: MRI Brain left cerebellar and medulla acute strokes. old left temporal stroke MRA left vertebral artery occlusion Assessment and Plan This is a 58 YO M with acute stroke and left vertebral artery occlusion. Recommend: CTA neck to verify occlusion aspirin and plavix short term, continue lipitor, vte prophylaxis PT/OT/ST echo and carotids LDL noted, will follow on a1c Continue care for all medical issues as you are doing POC discussed with pt's sister at the bedside
[2018-11-04] MEDS: LOVENOX SUB-Q SCH (21:53)
[2018-11-04] MEDS: PLAVIX PO SCH (21:54)
[2018-11-04] MEDS ORDERED: [UNRECOGNIZED DRUG - OTHER] TP SCH (22:00)
[2018-11-04] MEDS ORDERED: BETAMETHASONE DIP TP SCH (22:00)
[2018-11-04] MEDS ORDERED: CLOTRIMAZOLE TP SCH (22:00)
[2018-11-04] MEDS: SODIUM CHLORIDE FLUSH SYRINGE 10 ML IV PRN (22:01)
[2018-11-04] MEDS: LAC-HYDRIN TP SCH (23:01)
[2018-11-04] MEDS: SYMMETREL PO SCH (23:01)
[2018-11-04] MEDS: CLOTRIMAZOLE/BETAMETHASONE TP SCH (23:02)
[2018-11-05] MEDS ORDERED: TERBINAFINE HCL 250 MG PO SCH (10:00)
[2018-11-05] MEDS: PLAVIX PO SCH (10:28)
[2018-11-05] MEDS: ASPIRIN PO SCH (10:28)
[2018-11-05] MEDS: CLOTRIMAZOLE/BETAMETHASONE TP SCH ×2 (10:28→22:02)
[2018-11-05] MEDS: FEOSOL PO SCH (10:28)
[2018-11-05] MEDS: LAC-HYDRIN TP SCH ×2 (10:29→22:02)
[2018-11-05] MEDS: SYMMETREL PO SCH ×2 (11:03→22:01)
--- NOTE | 2018-11-05 15:49 | Progress Note ---
Assessment and Plan Assessment and plan: Patient is a 58 yo man from [facility] with a history of CVA complicated by RHP, Dysarthria, HTN, and DM who [facility] with left sided weakness. Pt is outside therapeutic window for TPA * 2D ECHO conclusions left ventricular chamber size is normal, estimated EF 50- 55%, trace MR, right heart chambers mildly dilated, mild to moderate TR, mild pulmonary hypertension, RVSP calculated at 34mmHg, negative bubble study, technically difficult * CT head Impression: Mild cortical atrophy. Chronic lacunar infarct right and left ganglia no acute intracranial abnormality. * MRI brain wo contrast IMPRESSION: 1. Acute/subacute nonhemorrhagic infarcts involving the left inferior medial cerebellum and the left medulla oblongata. 2. Old left temporal lobe ischemia with [place] degeneration of the left brainstem. 3. Moderate cerebral and cerebellar cortical atrophy and extensive chronic white matter microangiopathy. * MRA head wo contrast IMPRESSION: Suspect left vertebral artery occlusion. * Carotid Duplex Bilateral IMPRESSION: No clinically significant areas of stenosis noted bilaterally. ICA Stenosis % per the NASCET criteria is < 50 % on the right and < 50 % on the left. * pCXR Impression: Suspicion of COPD. No acute changes. (1) CVA (cerebral vascular accident) Current Visit: Yes Status: Acute Qualifiers: Precerebral and cerebral artery: middle cerebral artery Laterality of affected vessel: left Plan to address problem: Admit to telemetry: CVA protocol: CT Head, MRI Brain, MRA Brain, Echo, Carotid Doppler PT/OT/Speech Therapy, Seizure Precautions, Aspiration precautions, Antiplatelet therapy, lipid panel, statin therapy (2) Right hemiparesis Current Visit: Yes Status: Acute Plan to address problem: PT consulted, supportive care. (3) HTN (hypertension) Current Visit: Yes Status: Acute Qualifiers: Hypertension type: essential hypertension Qualified Code(s): I10 - Essential (primary) hypertension Plan to address problem: Monitor BP q shift, continue medical management, (4) HLD (hyperlipidemia) Current Visit: Yes Status: Acute Qualifiers: Hyperlipidemia type: mixed hyperlipidemia Qualified Code(s): E78.2 - Mixed hyperlipidemia Plan to address problem: Statin therapy, lipid panel, low cholesterol diet (5) DVT prophylaxis Current Visit: Yes Status: Acute Plan to address problem: SCD to BLE while in bed, CTA neck pending History Interval history: Patient was seen and examined. Follow-up on current diagnosis of CVA. No overnight events reported to me. Patient denies any chest pain, shortness breath, nausea/vomiting or severe headaches. Imaging, nursing note, chart, labs and old chart reviewed. Discussed with patient and sister Rochelle at bedside Hospitalist Physical - Physical exam Narrative exam: Gen: thin frail, chronic disable NAD, Awake, Alert, Orientated HEENT: NCAT, EOMI, PERRL, OP Clear Neck: supple, no adenopathy, no thyromegaly, no JVD CVS/Heart: RRR, normal S1S2, pulses present bilaterally Chest/Lungs: CTA B, Symmetrical chest expansion, good air entry bilaterally GI/Abdomen: soft, NTND, good bowel sounds, no guarding or rebound /Bladder: no suprapubic tenderness, no CVA or paraspinal tenderness Extermity/Skin: no c/c/e, no obvious rash MSK: FROM x 3, old right hemiparesis with contracture Neuro: CN 2-12 grossly intact except dyarthria, new focal deficits, left sided weakness with left drift Psych: calm - Constitutional Vitals: Temp Pulse Resp BP Pulse Ox 98.1 F 83 18 112/83 99 11/05/18 07:40 11/05/18 13:01 11/05/18 07:40 11/05/18 13:01 11/05/18 13:01 General appearance: Absent: mild distress Results - Labs CBC & Chem 7: 11/04/18 09:51 11/04/18 10:07 Labs: Laboratory Last Values WBC 6.7 K/mm3 (4.5-11.0) 11/04/18 09:51 RBC 5.13 M/mm3 (3.65-5.03) H 11/04/18 09:51 Hgb 15.4 gm/dl (11.8-15.2) H 11/04/18 09:51 Hct 45.5 % (35.5-45.6) 11/04/18 09:51 MCV 89 fl (84-94) 11/04/18 09:51 MCH 30 pg (28-32) 11/04/18 09:51 MCHC 34 % (32-34) 11/04/18 09:51 RDW 13.3 % (13.2-15.2) 11/04/18 09:51 Plt Count 244 K/mm3 (140-440) 11/04/18 09:51 Lymph % (Auto) 11.0 % (13.4-35.0) L 11/04/18 09:51 [place] % (Auto) 4.4 % (0.0-7.3) 11/04/18 09:51 Eos % (Auto) 0.6 % (0.0-4.3) 11/04/18 09:51 Baso % (Auto) 0.8 % (0.0-1.8) 11/04/18 09:51 Lymph # 0.7 K/mm3 (1.2-5.4) L 11/04/18 09:51 [place] # 0.3 K/mm3 (0.0-0.8) 11/04/18 09:51 Eos # 0.0 K/mm3 (0.0-0.4) 11/04/18 09:51 Baso # 0.1 K/mm3 (0.0-0.1) 11/04/18 09:51 Seg Neutrophils % 83.2 % (40.0-70.0) H 11/04/18 09:51 Seg Neutrophils # 5.6 K/mm3 (1.8-7.7) 11/04/18 09:51 PT 13.9 Sec. (12.2-14.9) 11/04/18 10:07 INR 1.01 (0.87-1.13) 11/04/18 10:07 APTT 23.6 Sec. (24.2-36.6) L 11/04/18 10:07 Sodium 140 mmol/L (137-145) 11/04/18 10:07 Potassium 4.7 mmol/L (3.6-5.0) 11/04/18 10:07 Chloride 102.8 mmol/L (98-107) 11/04/18 10:07 Carbon Dioxide 27 mmol/L (22-30) 11/04/18 10:07 15 mmol/L 11/04/18 10:07 BUN 18 mg/dL (9-20) 11/04/18 10:07 1.2 mg/dL (0.8-1.5) 11/04/18 10:07 Estimated GFR > 60 ml/min 11/04/18 10:07 15 % 11/04/18 10:07 Glucose 127 mg/dL (75-100) H 11/04/18 10:07 POC Glucose 100 (70-105) 11/04/18 09:16 4.9 % (4-6) 11/04/18 20:26 Lactic Acid 1.40 mmol/L (0.7-2.0) 11/04/18 10:07 Calcium 8.8 mg/dL (8.4-10.2) 11/04/18 10:07 0.50 mg/dL (0.1-1.2) 11/04/18 10:07 AST 17 units/L (5-40) 11/04/18 10:07 ALT 15 units/L (7-56) 11/04/18 10:07 141 units/L (35-129) H 11/04/18 10:07 25.0 umol/L (25-60) 11/04/18 10:07 < 0.010 ng/mL (0.00-0.029) 11/04/18 13:13 6.8 g/dL (6.3-8.2) 11/04/18 10:07 4.2 g/dL (3.9-5) 11/04/18 10:07 1.6 % 11/04/18 10:07 Triglycerides 65 mg/dL (2-149) 11/04/18 13:13 Cholesterol 171 mg/dL (50-199) 11/04/18 13:13 103 mg/dL (50-130) 11/04/18 13:13 62 mg/dL (40-59) H 11/04/18 13:13 2.75 % 11/04/18 13:13 Yellow (Yellow) 11/04/18 Unknown Clear (Clear) 11/04/18 Unknown 5.0 (5.0-7.0) 11/04/18 Unknown Ur Specific [place] 1.012 (1.003-1.030) 11/04/18 Unknown <15 mg/dl mg/dL (Negative) 11/04/18 Unknown Neg mg/dL (Negative) 11/04/18 Unknown Tr mg/dL (Negative) 11/04/18 Unknown Neg (Negative) 11/04/18 Unknown Neg (Negative) 11/04/18 Unknown Neg (Negative) 11/04/18 Unknown < 2.0 mg/dL (<2.0) 11/04/18 Unknown Ur Leukocyte Esterase Neg (Negative) 11/04/18 Unknown 1.0 /HPF (0.0-6.0) 11/04/18 Unknown 2.0 /HPF (0.0-6.0) 11/04/18 Unknown Few /HPF 11/04/18 Unknown Salicylates < 0.3 mg/dL (2.8-20.0) L 11/04/18 10:07 Acetaminophen < 5.0 ug/mL (10.0-30.0) L 11/04/18 10:07 Active Medications - Current Medications Current Medications: Generic Name Dose Route Start Last Admin Trade Name Freq PRN Reason Stop Dose Admin Acetaminophen 650 mg 11/04/18 13:08 Tylenol PO Q4H PRN Pain, Mild (1-3) Acetaminophen/Codeine Phosphate 1 tab 11/04/18 13:14 Tylenol #3 PO Q4HR PRN Pain Albuterol 2.5 mg 11/04/18 13:08 Proventil IH Q3HRT PRN Shortness Of Breath Amantadine HCl 100 mg 11/04/18 22:00 11/05/18 11:03 Symmetrel PO 100 mg BID MAK Administration Aspirin 325 mg 11/05/18 10:00 11/05/18 10:28 Aspirin PO 325 mg QDAY MAK Administration Atorvastatin Calcium 40 mg 11/04/18 22:00 11/04/18 21:53 Lipitor PO 40 mg QHS MAK Administration Bisacodyl 10 mg 11/04/18 13:08 Dulcolax IA QDAY PRN Constipation Clopidogrel Bisulfate 75 mg 11/04/18 20:00 11/05/18 10:28 Plavix PO 75 mg QDAY MAK Administration Clotrimazole 1 applic 11/04/18 22:00 11/05/18 10:28 Clotrimazole/Betamethasone TP 1 applic BID MAK Administration Enoxaparin Sodium 40 mg 11/04/18 22:00 11/04/18 21:53 Lovenox SUB-Q 40 mg QDAY@2200 MAK Administration Ferrous Sulfate 325 mg 11/05/18 10:00 11/05/18 10:28 Feosol PO 325 mg QDAY MAK Administration Ibuprofen 800 mg 11/04/18 13:14 Motrin PO Q4H PRN Pain, Moderate (4-6) Lactic Acid 1 applic 11/04/18 22:00 11/05/18 10:29 Lac-Hydrin TP 1 applic BID MAK Administration Magnesium Hydroxide 30 ml 11/04/18 13:08 Milk Of Magnesia PO Q4H PRN Constipation Metoclopramide HCl 10 mg 11/04/18 13:08 Reglan PO Q6H PRN Nausea And Vomiting Miscellaneous Medication 250 mg 11/05/18 10:00 Terbinafine Hcl [Lamisil] PO DAILY [facility] Ondansetron HCl 4 mg 11/04/18 13:08 11/04/18 17:26 Zofran IV 4 mg Q8H PRN Administration Nausea And Vomiting Promethazine HCl 25 mg 11/04/18 13:08 Phenergan IA Q6H PRN Nausea And Vomiting Sodium Chloride 10 ml 11/04/18 13:08 11/04/18 22:01 Sodium Chloride Flush Syringe 10 Ml IV 10 ml PRN PRN Administration LINE FLUSH
--- NOTE | 2018-11-05 17:02 | Cat Scan Report ---
PROCEDURE: CT ANGIO NECK TECHNIQUE: Following administration of IV contrast axial helical imaging was performed through the n linda with sagittal and coronal reformatted images and maximum intensity projection images obtained. HISTORY: left vertebral occlusion COMPARISONS: MRI brain and MRA brain dated November 04, 2018. The reports for these studies are not availab le for review at the time of this dictation. FINDINGS: There is evidence of stenoses of the right subclavian artery of approximately 40%. There is a moderate, approximately 60%, stenosis of the proximal right internal carotid artery. There is no evidence of stenosis of the left internal carotid artery. The right vertebral artery is dominant. There is an approximately 60% stenosis of the proximal right vertebral artery. There is an approximately 60-70% stenosis of the distal right vertebral artery at the level of the fo ramen magnum. There are multiple segments of stenoses of the nondominant left vertebral artery at the level of C6 t his appears to be high-grade. The bony structures are notable for cervical spondylosis with multiple level canal and foraminal sten osis secondary to spondylitic change. The visualized portions of the lungs are notable for pulmonary emphysema with bullous changes in the right lung apex. There is evidence of a marked degree of periodontal disease. IMPRESSION: 1. Approximately 60% stenosis proximal right internal carotid artery. 2. Approximately 60% stenosis proximal right vertebral artery and approximately 60-70% stenosis dista l right vertebral artery. The right vertebral artery is dominant. 3. Multiple segmental stenoses of the nondominant left vertebral artery, at least one of which appear s to be high-grade. 4. Cervical spondylosis with canal and foraminal stenosis. 5. Pulmonary emphysema. 6. Marked degree of periodontal disease. This document is electronically signed by Mel Ricci MD., Nov 05 2018 05:00:50 PM ET
[2018-11-05] MEDS: LOVENOX SUB-Q SCH (22:01)
[2018-11-06] MEDS: SYMMETREL PO SCH ×2 (09:12→21:23)
[2018-11-06] MEDS: FEOSOL PO SCH (09:12)
[2018-11-06] MEDS: PLAVIX PO SCH (09:12)
[2018-11-06] MEDS: ASPIRIN PO SCH (09:12)
[2018-11-06] MEDS: CLOTRIMAZOLE/BETAMETHASONE TP SCH ×2 (09:12→21:24)
[2018-11-06] MEDS: LAC-HYDRIN TP SCH ×2 (09:13→21:24)
--- NOTE | 2018-11-06 12:27 | Progress Note ---
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 Pt was outside therapeutic window for TPA per ED report. * 2D ECHO conclusions left ventricular chamber size is normal, est EF 50-55%, trace MR, right heart chambers mildly dilated, mild to moderate TR, mild pulmonary hypertension, RVSP calculated at 34mmHg, negative bubble study, technically difficult * CT head Impression: Mild cortical atrophy. Chronic lacunar infarct right and left ganglia no acute intracranial abnormality. * MRI brain wo contrast IMPRESSION: 1. Acute/subacute nonhemorrhagic infarcts involving the left inferior medial cerebellum and the left medulla oblongata. 2. Old left temporal lobe ischemia with Wallerian degeneration of the left brainstem. 3. Moderate cerebral and cerebellar cortical atrophy and extensive chronic white matter microangiopathy. * MRA head wo contrast IMPRESSION: Suspect left vertebral artery occlusion. * Carotid Duplex Bilateral IMPRESSION: No clinically significant areas of stenosis noted bilaterally. ICA Stenosis % per the NASCET criteria is < 50 % on the right and < 50 % on the left. * pCXR Impression: Suspicion of COPD. No acute changes. * CTA neck IMPRESSION: 1. Approximately 60% stenosis proximal right internal carotid artery. 2. Approximately 60% stenosis proximal right vertebral artery and approximately 60-70% stenosis distal right vertebral artery. The right vertebral artery is dominant. 3. Multiple segmental stenoses of the nondominant left vertebral artery, at least one of which appears to be high- grade. 4. Cervical spondylosis with canal and foraminal stenosis. 5. Pulmonary emphysema. 6. Marked degree of periodontal disease. -Acute CVA, stroke in evolution, with new Left hemiparesis: Rehab services, treat with asa/statin -Carotid artery stenosis: treat with plavix/asa/statin and consulted Vascular surgery -Left vertebral artery stenosis: treat medical, consulted Vascular surgery -H/o CVA with right side paralysis -DM type 2: ssi, accucheck -Hypertension, stable: continue present management -Dyslipidemia: treat with statin DVT ppx on sq lovenox, stop the Motrin full code Disposition: continue inpatient care, await Vascular, Subacute Rehab recommended by Physical Therapy I called sister Rochelle [phone], no answer History Interval history: Patient was seen and examined. Follow-up on current diagnosis of CVA. No overnight events reported to me. Patient denies any chest pain, shortness breath, nausea/vomiting or severe headaches. Imaging, nursing note, chart, labs and old chart reviewed. Hospitalist Physical - Physical exam Narrative exam: Gen: thin frail, chronic disable NAD, Awake, Alert, Orientated HEENT: NCAT, EOMI, PERRL, OP Clear Neck: supple, no adenopathy, no thyromegaly, no JVD CVS/Heart: RRR, normal S1S2, pulses present bilaterally Chest/Lungs: CTA B, Symmetrical chest expansion, good air entry bilaterally GI/Abdomen: soft, NTND, good bowel sounds, no guarding or rebound /Bladder: no suprapubic tenderness, no CVA or paraspinal tenderness Extermity/Skin: no c/c/e, no obvious rash MSK: FROM x 3, old right hemiparesis with contracture Neuro: CN 2-12 grossly intact except dyarthria, new focal deficits, left sided weakness with left drift Psych: calm - Constitutional Vitals: Temp Pulse Resp BP Pulse Ox 98.5 F 82 18 117/81 99 11/06/18 07:46 11/06/18 07:46 11/06/18 07:46 11/06/18 07:46 11/06/18 07:46 General appearance: Absent: mild distress Results - Labs CBC & Chem 7: 11/04/18 09:51 11/04/18 10:07 Labs: Laboratory Last Values WBC 6.7 K/mm3 (4.5-11.0) 11/04/18 09:51 RBC 5.13 M/mm3 (3.65-5.03) H 11/04/18 09:51 Hgb 15.4 gm/dl (11.8-15.2) H 11/04/18 09:51 Hct 45.5 % (35.5-45.6) 11/04/18 09:51 MCV 89 fl (84-94) 11/04/18 09:51 MCH 30 pg (28-32) 11/04/18 09:51 MCHC 34 % (32-34) 11/04/18 09:51 RDW 13.3 % (13.2-15.2) 11/04/18 09:51 Plt Count 244 K/mm3 (140-440) 11/04/18 09:51 Lymph % (Auto) 11.0 % (13.4-35.0) L 11/04/18 09:51 [place] % (Auto) 4.4 % (0.0-7.3) 11/04/18 09:51 Eos % (Auto) 0.6 % (0.0-4.3) 11/04/18 09:51 Baso % (Auto) 0.8 % (0.0-1.8) 11/04/18 09:51 Lymph # 0.7 K/mm3 (1.2-5.4) L 11/04/18 09:51 [place] # 0.3 K/mm3 (0.0-0.8) 11/04/18 09:51 Eos # 0.0 K/mm3 (0.0-0.4) 11/04/18 09:51 Baso # 0.1 K/mm3 (0.0-0.1) 11/04/18 09:51 Seg Neutrophils % 83.2 % (40.0-70.0) H 11/04/18 09:51 Seg Neutrophils # 5.6 K/mm3 (1.8-7.7) 11/04/18 09:51 PT 13.9 Sec. (12.2-14.9) 11/04/18 10:07 INR 1.01 (0.87-1.13) 11/04/18 10:07 APTT 23.6 Sec. (24.2-36.6) L 11/04/18 10:07 Sodium 140 mmol/L (137-145) 11/04/18 10:07 Potassium 4.7 mmol/L (3.6-5.0) 11/04/18 10:07 Chloride 102.8 mmol/L (98-107) 11/04/18 10:07 Carbon Dioxide 27 mmol/L (22-30) 11/04/18 10:07 15 mmol/L 11/04/18 10:07 BUN 18 mg/dL (9-20) 11/04/18 10:07 1.2 mg/dL (0.8-1.5) 11/04/18 10:07 Estimated GFR > 60 ml/min 11/04/18 10:07 15 % 11/04/18 10:07 Glucose 127 mg/dL (75-100) H 11/04/18 10:07 POC Glucose 123 (70-105) H 11/05/18 21:34 4.9 % (4-6) 11/04/18 20:26 Lactic Acid 1.40 mmol/L (0.7-2.0) 11/04/18 10:07 Calcium 8.8 mg/dL (8.4-10.2) 11/04/18 10:07 0.50 mg/dL (0.1-1.2) 11/04/18 10:07 AST 17 units/L (5-40) 11/04/18 10:07 ALT 15 units/L (7-56) 11/04/18 10:07 141 units/L (35-129) H 11/04/18 10:07 25.0 umol/L (25-60) 11/04/18 10:07 < 0.010 ng/mL (0.00-0.029) 11/04/18 13:13 6.8 g/dL (6.3-8.2) 11/04/18 10:07 4.2 g/dL (3.9-5) 11/04/18 10:07 1.6 % 11/04/18 10:07 Triglycerides 65 mg/dL (2-149) 11/04/18 13:13 Cholesterol 171 mg/dL (50-199) 11/04/18 13:13 103 mg/dL (50-130) 11/04/18 13:13 62 mg/dL (40-59) H 11/04/18 13:13 2.75 % 11/04/18 13:13 Yellow (Yellow) 11/04/18 Unknown Clear (Clear) 11/04/18 Unknown 5.0 (5.0-7.0) 11/04/18 Unknown Ur Specific [place] 1.012 (1.003-1.030) 11/04/18 Unknown <15 mg/dl mg/dL (Negative) 11/04/18 Unknown Neg mg/dL (Negative) 11/04/18 Unknown Tr mg/dL (Negative) 11/04/18 Unknown Neg (Negative) 11/04/18 Unknown Neg (Negative) 11/04/18 Unknown Neg (Negative) 11/04/18 Unknown < 2.0 mg/dL (<2.0) 11/04/18 Unknown Ur Leukocyte Esterase Neg (Negative) 11/04/18 Unknown 1.0 /HPF (0.0-6.0) 11/04/18 Unknown 2.0 /HPF (0.0-6.0) 11/04/18 Unknown Few /HPF 11/04/18 Unknown Salicylates < 0.3 mg/dL (2.8-20.0) L 11/04/18 10:07 Acetaminophen < 5.0 ug/mL (10.0-30.0) L 11/04/18 10:07 Active Medications - Current Medications Current Medications: Generic Name Dose Route Start Last Admin Trade Name Freq PRN Reason Stop Dose Admin Acetaminophen 650 mg 11/04/18 13:08 Tylenol PO Q4H PRN Pain, Mild (1-3) Acetaminophen/Codeine Phosphate 1 tab 11/04/18 13:14 Tylenol #3 PO Q4HR PRN Pain Albuterol 2.5 mg 11/04/18 13:08 Proventil IH Q3HRT PRN Shortness Of Breath Amantadine HCl 100 mg 11/04/18 22:00 11/06/18 09:12 Symmetrel PO 100 mg BID MAK Administration Aspirin 325 mg 11/05/18 10:00 11/06/18 09:12 Aspirin PO 325 mg QDAY MAK Administration Atorvastatin Calcium 40 mg 11/04/18 22:00 11/05/18 22:02 Lipitor PO 40 mg QHS MAK Administration Bisacodyl 10 mg 11/04/18 13:08 Dulcolax HI QDAY PRN Constipation Clopidogrel Bisulfate 75 mg 11/04/18 20:00 11/06/18 09:12 Plavix PO 75 mg QDAY MAK Administration Clotrimazole 1 applic 11/04/18 22:00 11/06/18 09:12 Clotrimazole/Betamethasone TP 1 applic BID MAK Administration Enoxaparin Sodium 40 mg 11/04/18 22:00 11/05/18 22:01 Lovenox SUB-Q 40 mg QDAY@2200 MAK Administration Ferrous Sulfate 325 mg 11/05/18 10:00 11/06/18 09:12 Feosol PO 325 mg QDAY MAK Administration Ibuprofen 800 mg 11/04/18 13:14 Motrin PO Q4H PRN Pain, Moderate (4-6) Lactic Acid 1 applic 11/04/18 22:00 11/06/18 09:13 Lac-Hydrin TP 1 applic BID MAK Administration Magnesium Hydroxide 30 ml 11/04/18 13:08 Milk Of Magnesia PO Q4H PRN Constipation Metoclopramide HCl 10 mg 11/04/18 13:08 Reglan PO Q6H PRN Nausea And Vomiting Miscellaneous Medication 250 mg 11/05/18 10:00 Terbinafine Hcl [Lamisil] PO DAILY [facility] Ondansetron HCl 4 mg 11/04/18 13:08 11/04/18 17:26 Zofran IV 4 mg Q8H PRN Administration Nausea And Vomiting Promethazine HCl 25 mg 11/04/18 13:08 Phenergan HI Q6H PRN Nausea And Vomiting Sodium Chloride 10 ml 11/04/18 13:08 11/04/18 22:01 Sodium Chloride Flush Syringe 10 Ml IV 10 ml PRN PRN Administration LINE FLUSH
--- NOTE | 2018-11-06 18:07 | Consultation ---
<MENA VALADEZ - Last Filed: 11/06/18 17:52> History of Present Illness - Reason for Consult Consult date: 11/06/18 CVA with carotid stenosis Requesting physician: MAXIMILIAN DUMONT - History of Present Illness This pt is a 58yo AAM that was admitted via the [facility] ER on 11/04/18 due to suspected stroke. He is a poor historian and no family at the bed side, therefore much of the history has been taken from the medical record. The pt lives at a personal long-term following a previous stroke with right rosita- paresis (2013). He developed new dysarthria and reported left sided weakness (though this reportedly improved by the time he was in the ER). The stroke w/u initiated. Neurology consulted. Radiology/Cardiology studies reported as: * 2D ECHO conclusions left ventricular chamber size is normal, est EF 50-55%, trace MR, right heart chambers mildly dilated, mild to moderate TR, mild pulmonary hypertension, RVSP calculated at 34mmHg, negative bubble study, technically difficult * CT head Impression: Mild cortical atrophy. Chronic lacunar infarct right and left ganglia no acute intracranial abnormality. * MRI brain wo contrast IMPRESSION: 1. Acute/subacute nonhemorrhagic infarcts involving the left inferior medial cerebellum and the left medulla oblongata. 2. Old left temporal lobe ischemia with Wallerian degeneration of the left brainstem. 3. Moderate cerebral and cerebellar cortical atrophy and extensive chronic white matter microangiopathy. * MRA head wo contrast IMPRESSION: Suspect left vertebral artery occlusion. * Carotid Duplex Bilateral IMPRESSION: No clinically significant areas of stenosis noted bilaterally. ICA Stenosis % per the NASCET criteria is < 50 % on the right and < 50 % on the left. * pCXR Impression: Suspicion of COPD. No acute changes. * CTA neck IMPRESSION: 1. Approximately 60% stenosis proximal right internal carotid artery. 2. Approximately 60% stenosis proximal right vertebral artery and approximately 60-70% stenosis distal right vertebral artery. The right vertebral artery is dominant. 3. Multiple segmental stenoses of the nondominant left vertebral artery, at least one of which appears to be high- grade. 4. Cervical spondylosis with canal and foraminal stenosis. 5. Pulmonary emphysema. 6. Marked degree of periodontal disease. A vascular surgery consult requested to further evaluate. Pt unsure if he was on any antiplatelet medications as an outpt, though none listed on home medications. Pt states his right rosita-paresis feels unchanged in his estimation. Past History Past Medical History: diabetes, hypertension, hyperlipidemia, stroke (h/o Left hemispere cva in 2014 by report.) Past Surgical History: No surgical history, Other (reviewed) Social history: single, other (Lives at a personal long-term). denies: smoking, alcohol abuse, prescription drug abuse Family history: diabetes, hypertension Medications and Allergies Allergies Allergy/AdvReac Type Severity Reaction Status Date / Time No Known Allergies Allergy Unverified 06/27/16 14:39 Home Medications Medication Instructions Recorded Confirmed Last Taken Type ALBUTEROL Inhaler(NF) [VENTOLIN 1 puff IH Q6H PRN 11/04/18 11/04/18 Unknown History Inhaler(NF)] Acetaminophen/Codeine [Tylenol 1 tab PO Q4HR PRN 11/04/18 11/04/18 Unknown History /Codeine # 3 tab] Amantadine [Symmetrel] 100 mg PO BID 11/04/18 11/04/18 Unknown History Ammonium Lactate [Lac-Hydrin 1 applicatio TP BID 11/04/18 11/04/18 Unknown History Lotion] Clotrimazole/Betamethasone Dip 1 applic TP BID 11/04/18 11/04/18 Unknown History [Clotrimazole-Betamethasone Lotion] Ferrous Sulfate [Feosol] 325 mg PO QDAY 11/04/18 11/04/18 Unknown History Ibuprofen 800 mg PO Q4H PRN 11/04/18 11/04/18 Unknown History Terbinafine HCl [LamiSIL] 250 mg PO DAILY 11/04/18 11/04/18 Unknown History amLODIPine [Norvasc] 5 mg PO DAILY 11/04/18 11/04/18 Unknown History Active Meds: Active Medications Acetaminophen (Tylenol) 650 mg PO Q4H PRN PRN Reason: Pain, Mild (1-3) Acetaminophen/Codeine Phosphate (Tylenol #3) 1 tab PO Q4HR PRN PRN Reason: Pain Albuterol (Proventil) 2.5 mg IH Q3HRT PRN PRN Reason: Shortness Of Breath Amantadine HCl (Symmetrel) 100 mg PO BID MAK Last Admin: 11/06/18 09:12 Dose: 100 mg Documented by: Aspirin (Baby Aspirin) 81 mg PO QDAY [facility] Atorvastatin Calcium (Lipitor) 40 mg PO QHS [facility] Last Admin: 11/05/18 22:02 Dose: 40 mg Documented by: Bisacodyl (Dulcolax) 10 mg MS QDAY PRN PRN Reason: Constipation Clopidogrel Bisulfate (Plavix) 75 mg PO QDAY [facility] Last Admin: 11/06/18 09:12 Dose: 75 mg Documented by: Clotrimazole (Clotrimazole/Betamethasone) 1 applic TP BID [facility] Last Admin: 11/06/18 09:12 Dose: 1 applic Documented by: Enoxaparin Sodium (Lovenox) 40 mg SUB-Q QDAY@2200 [facility] Last Admin: 11/05/18 22:01 Dose: 40 mg Documented by: Ferrous Sulfate (Feosol) 325 mg PO QDAY [facility] Last Admin: 11/06/18 09:12 Dose: 325 mg Documented by: Lactic Acid (Lac-Hydrin) 1 applic TP BID [facility] Last Admin: 11/06/18 09:13 Dose: 1 applic Documented by: Magnesium Hydroxide (Milk Of Magnesia) 30 ml PO Q4H PRN PRN Reason: Constipation Metoclopramide HCl (Reglan) 10 mg PO Q6H PRN PRN Reason: Nausea And Vomiting Miscellaneous Medication (Terbinafine Hcl [Lamisil]) 250 mg PO DAILY [facility] Ondansetron HCl (Zofran) 4 mg IV Q8H PRN PRN Reason: Nausea And Vomiting Last Admin: 11/04/18 17:26 Dose: 4 mg Documented by: Promethazine HCl (Phenergan) 25 mg MS Q6H PRN PRN Reason: Nausea And Vomiting Sodium Chloride (Sodium Chloride Flush Syringe 10 Ml) 10 ml IV PRN PRN PRN Reason: LINE FLUSH Last Admin: 11/04/18 22:01 Dose: 10 ml Documented by: Review of Systems All systems: negative Exam - Constitutional Vitals: Temp Pulse Resp BP Pulse Ox 98.4 F 84 18 132/84 99 11/06/18 16:23 11/06/18 16:23 11/06/18 16:23 11/06/18 16:23 11/06/18 17:20 General appearance: Present: no acute distress - EENT Eyes: Present: EOM intact ENT: hearing intact, other (speech somewhat garbelled) - Neck Neck: Present: supple - Respiratory Respiratory effort: normal - Extremities Extremities: no ischemia - Neurologic Neurologic: other (profound right sided rosita-paresis.) Results - Labs CBC & Chem 7: 11/04/18 09:51 11/04/18 10:07 Labs: Abnormal lab results 11/05/18 Range/Units 21:34 POC Glucose 123 H (70-105) Assessment and Plan This pt presented with concerns for a new CVA which was confirmed by MRI (Acute/subacute nonhemorrhagic infarcts involving the left inferior medial cerebellum and the left medulla oblongata). A CTA was reported as, approximately 60-70% stenosis of the carotid arteries. However, the report mentions: Multiple segmental stenoses of the nondominant left vertebral artery, at least one of which appears to be high-grade. A vascular surgery consult has been requested to further evaluate. The images were review. No surgical intervention recommended at this point. This most recent neurologic event appears to have happened while the pt was not taking any antiplatelet or statin therapy. These has been started as an inpt. Recommend continuation of this upon discharge. If these lesions are felt to be the source and he has recurrent events despite the addition of these medications, then he would likely need to be evaluated by a neuro- interventionalist. - Patient Problems (1) CVA (cerebral vascular accident) Current Visit: Yes Status: Acute Qualifiers: Precerebral and cerebral artery: middle cerebral artery Laterality of affected vessel: left (2) HLD (hyperlipidemia) Current Visit: Yes Status: Acute Qualifiers: Hyperlipidemia type: mixed hyperlipidemia Qualified Code(s): E78.2 - Mixed hyperlipidemia (3) HTN (hypertension) Current Visit: Yes Status: Acute Qualifiers: Hypertension type: essential hypertension Qualified Code(s): I10 - Essential (primary) hypertension (4) Right hemiparesis Current Visit: Yes Status: Acute <HARRISON PARKER - Last Filed: 11/07/18 17:49> History of Present Illness - History of Present Illness CTA shows moderate carotid stenosis bilaterally. Acute findings on brain MRI involve the posterior left circulation. There are no acute findings in the right cortex on MRI. Suspect posterior stroke related to vertebral artery disease. It is unclear if patient was taking antiplatelet medication. Recommend ASA, Plavix, and a statin. No surgical intervention needed at this time. Medications and Allergies Active Meds: Active Medications Acetaminophen (Tylenol) 650 mg PO Q4H PRN PRN Reason: Pain, Mild (1-3) Albuterol (Proventil) 2.5 mg IH Q3HRT PRN PRN Reason: Shortness Of Breath Amantadine HCl (Symmetrel) 100 mg PO BID [facility] Last Admin: 11/07/18 10:55 Dose: 100 mg Documented by: Aspirin (Baby Aspirin) 81 mg PO QDAY [facility] Last Admin: 11/07/18 10:55 Dose: 81 mg Documented by: Atorvastatin Calcium (Lipitor) 40 mg PO QHS [facility] Last Admin: 11/06/18 21:23 Dose: 40 mg Documented by: Bisacodyl (Dulcolax) 10 mg MS QDAY PRN PRN Reason: Constipation Clopidogrel Bisulfate (Plavix) 75 mg PO QDAY [facility] Last Admin: 11/07/18 10:55 Dose: 75 mg Documented by: Clotrimazole (Clotrimazole/Betamethasone) 1 applic TP BID [facility] Last Admin: 11/07/18 10:58 Dose: 1 applic Documented by: Enoxaparin Sodium (Lovenox) 40 mg SUB-Q QDAY@2200 [facility] Last Admin: 11/06/18 21:23 Dose: 40 mg Documented by: Ferrous Sulfate (Feosol) 325 mg PO QDAY [facility] Last Admin: 11/07/18 10:55 Dose: 325 mg Documented by: Lactic Acid (Lac-Hydrin) 1 applic TP BID [facility] Last Admin: 11/07/18 10:58 Dose: 1 applic Documented by: Magnesium Hydroxide (Milk Of Magnesia) 30 ml PO Q4H PRN PRN Reason: Constipation Metoclopramide HCl (Reglan) 10 mg PO Q6H PRN PRN Reason: Nausea And Vomiting Ondansetron HCl (Zofran) 4 mg IV Q8H PRN PRN Reason: Nausea And Vomiting Last Admin: 11/04/18 17:26 Dose: 4 mg Documented by: Promethazine HCl (Phenergan) 25 mg MS Q6H PRN PRN Reason: Nausea And Vomiting Sodium Chloride (Sodium Chloride Flush Syringe 10 Ml) 10 ml IV PRN PRN PRN Reason: LINE FLUSH Last Admin: 11/04/18 22:01 Dose: 10 ml Documented by: Exam - Constitutional Vitals: Temp Pulse Resp BP Pulse Ox 97.9 F 84 18 132/92 95 11/07/18 15:29 11/07/18 15:29 11/07/18 15:29 11/07/18 15:29 11/07/18 15:29 Results - Labs CBC & Chem 7: 11/04/18 09:51 11/04/18 10:07 Labs: Abnormal lab results 11/07/18 Range/Units 11:16 POC Glucose 143 H (70-105)
[2018-11-06] MEDS: LOVENOX SUB-Q SCH (21:23)
[2018-11-07] MEDS: FEOSOL PO SCH (10:55)
[2018-11-07] MEDS: PLAVIX PO SCH (10:55)
[2018-11-07] MEDS: BABY ASPIRIN PO SCH (10:55)
[2018-11-07] MEDS: SYMMETREL PO SCH ×2 (10:55→21:10)
[2018-11-07] MEDS: LAC-HYDRIN TP SCH ×2 (10:58→21:11)
[2018-11-07] MEDS: CLOTRIMAZOLE/BETAMETHASONE TP SCH ×2 (10:58→21:11)
--- NOTE | 2018-11-07 16:07 | Progress Note ---
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 Pt was outside therapeutic window for TPA per ED report. * 2D ECHO conclusions left ventricular chamber size is normal, est EF 50-55%, trace MR, right heart chambers mildly dilated, mild to moderate TR, mild pulmonary hypertension, RVSP calculated at 34mmHg, negative bubble study, technically difficult * CT head Impression: Mild cortical atrophy. Chronic lacunar infarct right and left ganglia no acute intracranial abnormality. * MRI brain wo contrast IMPRESSION: 1. Acute/subacute nonhemorrhagic infarcts involving the left inferior medial cerebellum and the left medulla oblongata. 2. Old left temporal lobe ischemia with Wallerian degeneration of the left brainstem. 3. Moderate cerebral and cerebellar cortical atrophy and extensive chronic white matter microangiopathy. * MRA head wo contrast IMPRESSION: Suspect left vertebral artery occlusion. * Carotid Duplex Bilateral IMPRESSION: No clinically significant areas of stenosis noted bilaterally. ICA Stenosis % per the NASCET criteria is < 50 % on the right and < 50 % on the left. * pCXR Impression: Suspicion of COPD. No acute changes. * CTA neck IMPRESSION: 1. Approximately 60% stenosis proximal right internal carotid artery. 2. Approximately 60% stenosis proximal right vertebral artery and approximately 60-70% stenosis distal right vertebral artery. The right vertebral artery is dominant. 3. Multiple segmental stenoses of the nondominant left vertebral artery, at least one of which appears to be high- grade. 4. Cervical spondylosis with canal and foraminal stenosis. 5. Pulmonary emphysema. 6. Marked degree of periodontal disease. -Acute CVA, stroke in evolution, with new Left hemiparesis: Rehab services, treat with asa/statin -Carotid artery stenosis: treat with plavix/asa/statin and consulted Vascular surgery -Left vertebral artery stenosis: treat medical, consulted Vascular surgery -H/o CVA with right side paralysis -DM type 2: ssi, accucheck -Hypertension, stable: continue present management -Dyslipidemia: treat with statin DVT ppx on sq lovenox, stop the Motrin full code Disposition: continue inpatient care, await Vascular, Subacute Rehab recommended by Physical Therapy I spoke with sister Rochelle at bedside yester Awaiting placement History Interval history: Patient was seen and examined. Follow-up on current diagnosis of CVA. No overnight events reported to me. Patient denies any chest pain, shortness breath, nausea/vomiting or severe headaches. Imaging, nursing note, chart, labs and old chart reviewed. Hospitalist Physical - Physical exam Narrative exam: Gen: thin frail, chronic disable NAD, Awake, Alert, Orientated HEENT: NCAT, EOMI, PERRL, OP Clear Neck: supple, no adenopathy, no thyromegaly, no JVD CVS/Heart: RRR, normal S1S2, pulses present bilaterally Chest/Lungs: CTA B, Symmetrical chest expansion, good air entry bilaterally GI/Abdomen: soft, NTND, good bowel sounds, no guarding or rebound /Bladder: no suprapubic tenderness, no CVA or paraspinal tenderness Extermity/Skin: no c/c/e, no obvious rash MSK: FROM x 3, old right hemiparesis with contracture Neuro: CN 2-12 grossly intact except dyarthria, new focal deficits, left sided weakness with left drift Psych: calm - Constitutional Vitals: Temp Pulse Resp BP Pulse Ox 98.0 F 90 18 121/79 99 11/07/18 11:13 11/07/18 11:13 11/07/18 11:13 11/07/18 11:13 11/07/18 11:13 General appearance: Present: no acute distress Results - Labs CBC & Chem 7: 11/04/18 09:51 11/04/18 10:07 Labs: Laboratory Last Values WBC 6.7 K/mm3 (4.5-11.0) 11/04/18 09:51 RBC 5.13 M/mm3 (3.65-5.03) H 11/04/18 09:51 Hgb 15.4 gm/dl (11.8-15.2) H 11/04/18 09:51 Hct 45.5 % (35.5-45.6) 11/04/18 09:51 MCV 89 fl (84-94) 11/04/18 09:51 MCH 30 pg (28-32) 11/04/18 09:51 MCHC 34 % (32-34) 11/04/18 09:51 RDW 13.3 % (13.2-15.2) 11/04/18 09:51 Plt Count 244 K/mm3 (140-440) 11/04/18 09:51 Lymph % (Auto) 11.0 % (13.4-35.0) L 11/04/18 09:51 [place] % (Auto) 4.4 % (0.0-7.3) 11/04/18 09:51 Eos % (Auto) 0.6 % (0.0-4.3) 11/04/18 09:51 Baso % (Auto) 0.8 % (0.0-1.8) 11/04/18 09:51 Lymph # 0.7 K/mm3 (1.2-5.4) L 11/04/18 09:51 [place] # 0.3 K/mm3 (0.0-0.8) 11/04/18 09:51 Eos # 0.0 K/mm3 (0.0-0.4) 11/04/18 09:51 Baso # 0.1 K/mm3 (0.0-0.1) 11/04/18 09:51 Seg Neutrophils % 83.2 % (40.0-70.0) H 11/04/18 09:51 Seg Neutrophils # 5.6 K/mm3 (1.8-7.7) 11/04/18 09:51 PT 13.9 Sec. (12.2-14.9) 11/04/18 10:07 INR 1.01 (0.87-1.13) 11/04/18 10:07 APTT 23.6 Sec. (24.2-36.6) L 11/04/18 10:07 Sodium 140 mmol/L (137-145) 11/04/18 10:07 Potassium 4.7 mmol/L (3.6-5.0) 11/04/18 10:07 Chloride 102.8 mmol/L (98-107) 11/04/18 10:07 Carbon Dioxide 27 mmol/L (22-30) 11/04/18 10:07 15 mmol/L 11/04/18 10:07 BUN 18 mg/dL (9-20) 11/04/18 10:07 1.2 mg/dL (0.8-1.5) 11/04/18 10:07 Estimated GFR > 60 ml/min 11/04/18 10:07 15 % 11/04/18 10:07 Glucose 127 mg/dL (75-100) H 11/04/18 10:07 POC Glucose 143 (70-105) H 11/07/18 11:16 4.9 % (4-6) 11/04/18 20:26 Lactic Acid 1.40 mmol/L (0.7-2.0) 11/04/18 10:07 Calcium 8.8 mg/dL (8.4-10.2) 11/04/18 10:07 0.50 mg/dL (0.1-1.2) 11/04/18 10:07 AST 17 units/L (5-40) 11/04/18 10:07 ALT 15 units/L (7-56) 11/04/18 10:07 141 units/L (35-129) H 11/04/18 10:07 25.0 umol/L (25-60) 11/04/18 10:07 < 0.010 ng/mL (0.00-0.029) 11/04/18 13:13 6.8 g/dL (6.3-8.2) 11/04/18 10:07 4.2 g/dL (3.9-5) 11/04/18 10:07 1.6 % 11/04/18 10:07 Triglycerides 65 mg/dL (2-149) 11/04/18 13:13 Cholesterol 171 mg/dL (50-199) 11/04/18 13:13 103 mg/dL (50-130) 11/04/18 13:13 62 mg/dL (40-59) H 11/04/18 13:13 2.75 % 11/04/18 13:13 Yellow (Yellow) 11/04/18 Unknown Clear (Clear) 11/04/18 Unknown 5.0 (5.0-7.0) 11/04/18 Unknown Ur Specific [place] 1.012 (1.003-1.030) 11/04/18 Unknown <15 mg/dl mg/dL (Negative) 11/04/18 Unknown Neg mg/dL (Negative) 11/04/18 Unknown Tr mg/dL (Negative) 11/04/18 Unknown Neg (Negative) 11/04/18 Unknown Neg (Negative) 11/04/18 Unknown Neg (Negative) 11/04/18 Unknown < 2.0 mg/dL (<2.0) 11/04/18 Unknown Ur Leukocyte Esterase Neg (Negative) 11/04/18 Unknown 1.0 /HPF (0.0-6.0) 11/04/18 Unknown 2.0 /HPF (0.0-6.0) 11/04/18 Unknown Few /HPF 11/04/18 Unknown Salicylates < 0.3 mg/dL (2.8-20.0) L 11/04/18 10:07 Acetaminophen < 5.0 ug/mL (10.0-30.0) L 11/04/18 10:07 Active Medications - Current Medications Current Medications: Generic Name Dose Route Start Last Admin Trade Name Freq PRN Reason Stop Dose Admin Acetaminophen 650 mg 11/04/18 13:08 Tylenol PO Q4H PRN Pain, Mild (1-3) Albuterol 2.5 mg 11/04/18 13:08 Proventil IH Q3HRT PRN Shortness Of Breath Amantadine HCl 100 mg 11/04/18 22:00 11/07/18 10:55 Symmetrel PO 100 mg BID MAK Administration Aspirin 81 mg 11/07/18 10:00 11/07/18 10:55 Baby Aspirin PO 81 mg QDAY MAK Administration Atorvastatin Calcium 40 mg 11/04/18 22:00 11/06/18 21:23 Lipitor PO 40 mg QHS MAK Administration Bisacodyl 10 mg 11/04/18 13:08 Dulcolax [place] QDAY PRN Constipation Clopidogrel Bisulfate 75 mg 11/04/18 20:00 11/07/18 10:55 Plavix PO 75 mg QDAY MAK Administration Clotrimazole 1 applic 11/04/18 22:00 11/07/18 10:58 Clotrimazole/Betamethasone TP 1 applic BID MAK Administration Enoxaparin Sodium 40 mg 11/04/18 22:00 11/06/18 21:23 Lovenox SUB-Q 40 mg QDAY@2200 MAK Administration Ferrous Sulfate 325 mg 11/05/18 10:00 11/07/18 10:55 Feosol PO 325 mg QDAY MAK Administration Lactic Acid 1 applic 11/04/18 22:00 11/07/18 10:58 Lac-Hydrin TP 1 applic BID MAK Administration Magnesium Hydroxide 30 ml 11/04/18 13:08 Milk Of Magnesia PO Q4H PRN Constipation Metoclopramide HCl 10 mg 11/04/18 13:08 Reglan PO Q6H PRN Nausea And Vomiting Ondansetron HCl 4 mg 11/04/18 13:08 11/04/18 17:26 Zofran IV 4 mg Q8H PRN Administration Nausea And Vomiting Promethazine HCl 25 mg 11/04/18 13:08 Phenergan HI Q6H PRN Nausea And Vomiting Sodium Chloride 10 ml 11/04/18 13:08 11/04/18 22:01 Sodium Chloride Flush Syringe 10 Ml IV 10 ml PRN PRN Administration LINE FLUSH
--- NOTE | 2018-11-07 18:45 | Event Note ---
Date: 11/07/18 MRI shows left posterior circulation acute pathology. CTA shows moderate bilateral carotid disease. Current events related to vertebral artery disease. Not clear if patient was on antiplatelet therapy. Recommend ASA, Plavix and statin. No surgical intervention needed.
[2018-11-07] MEDS: SODIUM CHLORIDE FLUSH SYRINGE 10 ML IV PRN (21:10)
[2018-11-07] MEDS: LOVENOX SUB-Q SCH (21:10)
[2018-11-08] MEDS: BABY ASPIRIN PO SCH (09:21)
[2018-11-08] MEDS: SYMMETREL PO SCH (09:21)
[2018-11-08] MEDS: FEOSOL PO SCH (09:21)
[2018-11-08] MEDS: PLAVIX PO SCH (09:21)
[2018-11-08] MEDS: CLOTRIMAZOLE/BETAMETHASONE TP SCH (09:25)
[2018-11-08] MEDS: LAC-HYDRIN TP SCH (09:25)
--- NOTE | 2018-11-08 12:23 | Progress Note ---
Assessment and Plan Assessment and plan: Patient is a 58 yo man from [facility] with a history of CVA complicated by RHP, Dysarthria, HTN, and DM type 2 who presents to [facility] ED with left sided weakness. Pt was outside therapeutic window for TPA per ED report. * 2D ECHO conclusions left ventricular chamber size is normal, est EF 50-55%, trace MR, right heart chambers mildly dilated, mild to moderate TR, mild pulmonary hypertension, RVSP calculated at 34mmHg, negative bubble study, technically difficult * CT head Impression: Mild cortical atrophy. Chronic lacunar infarct right and left ganglia no acute intracranial abnormality. * MRI brain wo contrast IMPRESSION: 1. Acute/subacute nonhemorrhagic infarcts involving the left inferior medial cerebellum and the left medulla oblongata. 2. Old left temporal lobe ischemia with Wallerian degeneration of the left brainstem. 3. Moderate cerebral and cerebellar cortical atrophy and extensive chronic white matter microangiopathy. * MRA head wo contrast IMPRESSION: Suspect left vertebral artery occlusion. * Carotid Duplex Bilateral IMPRESSION: No clinically significant areas of stenosis noted bilaterally. ICA Stenosis % per the NASCET criteria is < 50 % on the right and < 50 % on the left. * pCXR Impression: Suspicion of COPD. No acute changes. * CTA neck IMPRESSION: 1. Approximately 60% stenosis proximal right internal carotid artery. 2. Approximately 60% stenosis proximal right vertebral artery and approximately 60-70% stenosis distal right vertebral artery. The right vertebral artery is dominant. 3. Multiple segmental stenoses of the nondominant left vertebral artery, at least one of which appears to be high- grade. 4. Cervical spondylosis with canal and foraminal stenosis. 5. Pulmonary emphysema. 6. Marked degree of periodontal disease. -Acute CVA, stroke in evolution, with new Left hemiparesis: Rehab services, treat with asa/statin -Carotid artery stenosis: treat with plavix/asa/statin and consulted Vascular surgery -Left vertebral artery stenosis: treat medical, consulted Vascular surgery -H/o CVA with right side paralysis -DM type 2: ssi, accucheck -Hypertension, stable: continue present management -Dyslipidemia: treat with statin DVT ppx on sq lovenox, stop the Motrin full code Disposition: continue inpatient care, await Vascular, Subacute Rehab recommended by Physical Therapy Awaiting placement History Interval history: Patient was seen and examined. Follow-up on current diagnosis of CVA. No overnight events reported to me. Patient denies any chest pain, shortness breath, nausea/vomiting or severe headaches. Imaging, nursing note, chart, labs and old chart reviewed. Hospitalist Physical - Physical exam Narrative exam: Gen: thin frail, chronic disable NAD, Awake, Alert, Orientated HEENT: NCAT, EOMI, PERRL, OP Clear Neck: supple, no adenopathy, no thyromegaly, no JVD CVS/Heart: RRR, normal S1S2, pulses present bilaterally Chest/Lungs: CTA B, Symmetrical chest expansion, good air entry bilaterally GI/Abdomen: soft, NTND, good bowel sounds, no guarding or rebound /Bladder: no suprapubic tenderness, no CVA or paraspinal tenderness Extermity/Skin: no c/c/e, no obvious rash MSK: FROM x 3, old right hemiparesis with contracture Neuro: CN 2-12 grossly intact except dyarthria, new focal deficits, left sided weakness with left drift Psych: calm - Constitutional Vitals: Temp Pulse Resp BP Pulse Ox 98.4 F 76 20 120/80 96 11/08/18 03:49 11/08/18 03:49 11/08/18 03:49 11/08/18 03:49 11/08/18 03:49 General appearance: Present: no acute distress Results - Labs CBC & Chem 7: 11/04/18 09:51 11/04/18 10:07 Labs: Laboratory Last Values WBC 6.7 K/mm3 (4.5-11.0) 11/04/18 09:51 RBC 5.13 M/mm3 (3.65-5.03) H 11/04/18 09:51 Hgb 15.4 gm/dl (11.8-15.2) H 11/04/18 09:51 Hct 45.5 % (35.5-45.6) 11/04/18 09:51 MCV 89 fl (84-94) 11/04/18 09:51 MCH 30 pg (28-32) 11/04/18 09:51 MCHC 34 % (32-34) 11/04/18 09:51 RDW 13.3 % (13.2-15.2) 11/04/18 09:51 Plt Count 244 K/mm3 (140-440) 11/04/18 09:51 Lymph % (Auto) 11.0 % (13.4-35.0) L 11/04/18 09:51 [place] % (Auto) 4.4 % (0.0-7.3) 11/04/18 09:51 Eos % (Auto) 0.6 % (0.0-4.3) 11/04/18 09:51 Baso % (Auto) 0.8 % (0.0-1.8) 11/04/18 09:51 Lymph # 0.7 K/mm3 (1.2-5.4) L 11/04/18 09:51 [place] # 0.3 K/mm3 (0.0-0.8) 11/04/18 09:51 Eos # 0.0 K/mm3 (0.0-0.4) 11/04/18 09:51 Baso # 0.1 K/mm3 (0.0-0.1) 11/04/18 09:51 Seg Neutrophils % 83.2 % (40.0-70.0) H 11/04/18 09:51 Seg Neutrophils # 5.6 K/mm3 (1.8-7.7) 11/04/18 09:51 PT 13.9 Sec. (12.2-14.9) 11/04/18 10:07 INR 1.01 (0.87-1.13) 11/04/18 10:07 APTT 23.6 Sec. (24.2-36.6) L 11/04/18 10:07 Sodium 140 mmol/L (137-145) 11/04/18 10:07 Potassium 4.7 mmol/L (3.6-5.0) 11/04/18 10:07 Chloride 102.8 mmol/L (98-107) 11/04/18 10:07 Carbon Dioxide 27 mmol/L (22-30) 11/04/18 10:07 15 mmol/L 11/04/18 10:07 BUN 18 mg/dL (9-20) 11/04/18 10:07 1.2 mg/dL (0.8-1.5) 11/04/18 10:07 Estimated GFR > 60 ml/min 11/04/18 10:07 15 % 11/04/18 10:07 Glucose 127 mg/dL (75-100) H 11/04/18 10:07 POC Glucose 109 (70-105) H 11/07/18 20:50 4.9 % (4-6) 11/04/18 20:26 Lactic Acid 1.40 mmol/L (0.7-2.0) 11/04/18 10:07 Calcium 8.8 mg/dL (8.4-10.2) 11/04/18 10:07 0.50 mg/dL (0.1-1.2) 11/04/18 10:07 AST 17 units/L (5-40) 11/04/18 10:07 ALT 15 units/L (7-56) 11/04/18 10:07 141 units/L (35-129) H 11/04/18 10:07 25.0 umol/L (25-60) 11/04/18 10:07 < 0.010 ng/mL (0.00-0.029) 11/04/18 13:13 6.8 g/dL (6.3-8.2) 11/04/18 10:07 4.2 g/dL (3.9-5) 11/04/18 10:07 1.6 % 11/04/18 10:07 Triglycerides 65 mg/dL (2-149) 11/04/18 13:13 Cholesterol 171 mg/dL (50-199) 11/04/18 13:13 103 mg/dL (50-130) 11/04/18 13:13 62 mg/dL (40-59) H 11/04/18 13:13 2.75 % 11/04/18 13:13 Yellow (Yellow) 11/04/18 Unknown Clear (Clear) 11/04/18 Unknown 5.0 (5.0-7.0) 11/04/18 Unknown Ur Specific [place] 1.012 (1.003-1.030) 11/04/18 Unknown <15 mg/dl mg/dL (Negative) 11/04/18 Unknown Neg mg/dL (Negative) 11/04/18 Unknown Tr mg/dL (Negative) 11/04/18 Unknown Neg (Negative) 11/04/18 Unknown Neg (Negative) 11/04/18 Unknown Neg (Negative) 11/04/18 Unknown < 2.0 mg/dL (<2.0) 11/04/18 Unknown Ur Leukocyte Esterase Neg (Negative) 11/04/18 Unknown 1.0 /HPF (0.0-6.0) 11/04/18 Unknown 2.0 /HPF (0.0-6.0) 11/04/18 Unknown Few /HPF 11/04/18 Unknown Salicylates < 0.3 mg/dL (2.8-20.0) L 11/04/18 10:07 Acetaminophen < 5.0 ug/mL (10.0-30.0) L 11/04/18 10:07 Active Medications - Current Medications Current Medications: Generic Name Dose Route Start Last Admin Trade Name Freq PRN Reason Stop Dose Admin Acetaminophen 650 mg 11/04/18 13:08 Tylenol PO Q4H PRN Pain, Mild (1-3) Albuterol 2.5 mg 11/04/18 13:08 Proventil IH Q3HRT PRN Shortness Of Breath Amantadine HCl 100 mg 11/04/18 22:00 11/08/18 09:21 Symmetrel PO 100 mg BID MAK Administration Aspirin 81 mg 11/07/18 10:00 11/08/18 09:21 Baby Aspirin PO 81 mg QDAY MAK Administration Atorvastatin Calcium 40 mg 11/04/18 22:00 11/07/18 21:09 Lipitor PO 40 mg QHS MAK Administration Bisacodyl 10 mg 11/04/18 13:08 Dulcolax [place] QDAY PRN Constipation Clopidogrel Bisulfate 75 mg 11/04/18 20:00 11/08/18 09:21 Plavix PO 75 mg QDAY MAK Administration Clotrimazole 1 applic 11/04/18 22:00 11/08/18 09:25 Clotrimazole/Betamethasone TP 1 applic BID MAK Administration Enoxaparin Sodium 40 mg 11/04/18 22:00 11/07/18 21:10 Lovenox SUB-Q 40 mg QDAY@2200 MAK Administration Ferrous Sulfate 325 mg 11/05/18 10:00 11/08/18 09:21 Feosol PO 325 mg QDAY MAK Administration Lactic Acid 1 applic 11/04/18 22:00 11/08/18 09:25 Lac-Hydrin TP 1 applic BID MAK Administration Magnesium Hydroxide 30 ml 11/04/18 13:08 Milk Of Magnesia PO Q4H PRN Constipation Metoclopramide HCl 10 mg 11/04/18 13:08 Reglan PO Q6H PRN Nausea And Vomiting Ondansetron HCl 4 mg 11/04/18 13:08 11/04/18 17:26 Zofran IV 4 mg Q8H PRN Administration Nausea And Vomiting Promethazine HCl 25 mg 11/04/18 13:08 Phenergan [place] Q6H PRN Nausea And Vomiting Sodium Chloride 10 ml 11/04/18 13:08 11/07/18 21:10 Sodium Chloride Flush Syringe 10 Ml IV 10 ml PRN PRN Administration LINE FLUSH
[2018-11-08] MEDS: LOVENOX SUB-Q SCH (23:48)
[2018-11-08] MEDS: SODIUM CHLORIDE FLUSH SYRINGE 10 ML IV PRN (23:49)
[2018-11-09] MEDS: CLOTRIMAZOLE/BETAMETHASONE TP SCH ×3 (05:57→21:09)
[2018-11-09] MEDS: LAC-HYDRIN TP SCH ×3 (05:58→21:09)
[2018-11-09] MEDS: SYMMETREL PO SCH ×3 (05:58→21:08)
[2018-11-09] MEDS: FEOSOL PO SCH (09:22)
[2018-11-09] MEDS: PLAVIX PO SCH (09:22)
[2018-11-09] MEDS: BABY ASPIRIN PO SCH (09:22)
--- NOTE | 2018-11-09 14:08 | Progress Note ---
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 Pt was outside therapeutic window for TPA per ED report. * 2D ECHO conclusions left ventricular chamber size is normal, est EF 50-55%, trace MR, right heart chambers mildly dilated, mild to moderate TR, mild pulmonary hypertension, RVSP calculated at 34mmHg, negative bubble study, technically difficult * CT head Impression: Mild cortical atrophy. Chronic lacunar infarct right and left ganglia no acute intracranial abnormality. * MRI brain wo contrast IMPRESSION: 1. Acute/subacute nonhemorrhagic infarcts involving the left inferior medial cerebellum and the left medulla oblongata. 2. Old left temporal lobe ischemia with Wallerian degeneration of the left brainstem. 3. Moderate cerebral and cerebellar cortical atrophy and extensive chronic white matter microangiopathy. * MRA head wo contrast IMPRESSION: Suspect left vertebral artery occlusion. * Carotid Duplex Bilateral IMPRESSION: No clinically significant areas of stenosis noted bilaterally. ICA Stenosis % per the NASCET criteria is < 50 % on the right and < 50 % on the left. * pCXR Impression: Suspicion of COPD. No acute changes. * CTA neck IMPRESSION: 1. Approximately 60% stenosis proximal right internal carotid artery. 2. Approximately 60% stenosis proximal right vertebral artery and approximately 60-70% stenosis distal right vertebral artery. The right vertebral artery is dominant. 3. Multiple segmental stenoses of the nondominant left vertebral artery, at least one of which appears to be high- grade. 4. Cervical spondylosis with canal and foraminal stenosis. 5. Pulmonary emphysema. 6. Marked degree of periodontal disease. -Acute CVA, stroke in evolution, with new Left hemiparesis: Rehab services, treat with asa/statin -Carotid artery stenosis: treat with plavix/asa/statin and consulted Vascular surgery -Left vertebral artery stenosis: treat medical, consulted Vascular surgery -H/o CVA with right side paralysis -DM type 2: ssi, accucheck -Hypertension, stable: continue present management -Dyslipidemia: treat with statin DVT ppx on sq lovenox, stop the Motrin full code Disposition: continue inpatient care, Subacute Rehab recommended by Physical Therapy Awaiting placement History Interval history: Patient was seen and examined. Follow-up on current diagnosis of CVA. No overnight events reported to me. Patient denies any chest pain, shortness breath, nausea/vomiting or severe headaches. Imaging, nursing note, chart, labs and old chart reviewed. Hospitalist Physical - Physical exam Narrative exam: Gen: thin frail, chronic disable NAD, Awake, Alert, Orientated HEENT: NCAT, EOMI, PERRL, OP Clear Neck: supple, no adenopathy, no thyromegaly, no JVD CVS/Heart: RRR, normal S1S2, pulses present bilaterally Chest/Lungs: CTA B, Symmetrical chest expansion, good air entry bilaterally GI/Abdomen: soft, NTND, good bowel sounds, no guarding or rebound /Bladder: no suprapubic tenderness, no CVA or paraspinal tenderness Extermity/Skin: no c/c/e, no obvious rash MSK: FROM x 3, old right hemiparesis with contracture Neuro: CN 2-12 grossly intact except dyarthria, new focal deficits, left sided weakness with left drift Psych: calm - Constitutional Vitals: Temp Pulse Resp BP Pulse Ox 98.4 F 79 18 114/86 97 11/09/18 11:40 11/09/18 11:40 11/09/18 11:40 11/09/18 11:40 11/09/18 11:40 General appearance: Present: no acute distress Results - Labs CBC & Chem 7: 11/04/18 09:51 11/04/18 10:07 Labs: Laboratory Last Values WBC 6.7 K/mm3 (4.5-11.0) 11/04/18 09:51 RBC 5.13 M/mm3 (3.65-5.03) H 11/04/18 09:51 Hgb 15.4 gm/dl (11.8-15.2) H 11/04/18 09:51 Hct 45.5 % (35.5-45.6) 11/04/18 09:51 MCV 89 fl (84-94) 11/04/18 09:51 MCH 30 pg (28-32) 11/04/18 09:51 MCHC 34 % (32-34) 11/04/18 09:51 RDW 13.3 % (13.2-15.2) 11/04/18 09:51 Plt Count 244 K/mm3 (140-440) 11/04/18 09:51 Lymph % (Auto) 11.0 % (13.4-35.0) L 11/04/18 09:51 [place] % (Auto) 4.4 % (0.0-7.3) 11/04/18 09:51 Eos % (Auto) 0.6 % (0.0-4.3) 11/04/18 09:51 Baso % (Auto) 0.8 % (0.0-1.8) 11/04/18 09:51 Lymph # 0.7 K/mm3 (1.2-5.4) L 11/04/18 09:51 [place] # 0.3 K/mm3 (0.0-0.8) 11/04/18 09:51 Eos # 0.0 K/mm3 (0.0-0.4) 11/04/18 09:51 Baso # 0.1 K/mm3 (0.0-0.1) 11/04/18 09:51 Seg Neutrophils % 83.2 % (40.0-70.0) H 11/04/18 09:51 Seg Neutrophils # 5.6 K/mm3 (1.8-7.7) 11/04/18 09:51 PT 13.9 Sec. (12.2-14.9) 11/04/18 10:07 INR 1.01 (0.87-1.13) 11/04/18 10:07 APTT 23.6 Sec. (24.2-36.6) L 11/04/18 10:07 Sodium 140 mmol/L (137-145) 11/04/18 10:07 Potassium 4.7 mmol/L (3.6-5.0) 11/04/18 10:07 Chloride 102.8 mmol/L (98-107) 11/04/18 10:07 Carbon Dioxide 27 mmol/L (22-30) 11/04/18 10:07 15 mmol/L 11/04/18 10:07 BUN 18 mg/dL (9-20) 11/04/18 10:07 1.2 mg/dL (0.8-1.5) 11/04/18 10:07 Estimated GFR > 60 ml/min 11/04/18 10:07 15 % 11/04/18 10:07 Glucose 127 mg/dL (75-100) H 11/04/18 10:07 POC Glucose 109 (70-105) H 11/07/18 20:50 4.9 % (4-6) 11/04/18 20:26 Lactic Acid 1.40 mmol/L (0.7-2.0) 11/04/18 10:07 Calcium 8.8 mg/dL (8.4-10.2) 11/04/18 10:07 0.50 mg/dL (0.1-1.2) 11/04/18 10:07 AST 17 units/L (5-40) 11/04/18 10:07 ALT 15 units/L (7-56) 11/04/18 10:07 141 units/L (35-129) H 11/04/18 10:07 25.0 umol/L (25-60) 11/04/18 10:07 < 0.010 ng/mL (0.00-0.029) 11/04/18 13:13 6.8 g/dL (6.3-8.2) 11/04/18 10:07 4.2 g/dL (3.9-5) 11/04/18 10:07 1.6 % 11/04/18 10:07 Triglycerides 65 mg/dL (2-149) 11/04/18 13:13 Cholesterol 171 mg/dL (50-199) 11/04/18 13:13 103 mg/dL (50-130) 11/04/18 13:13 62 mg/dL (40-59) H 11/04/18 13:13 2.75 % 11/04/18 13:13 Yellow (Yellow) 11/04/18 Unknown Clear (Clear) 11/04/18 Unknown 5.0 (5.0-7.0) 11/04/18 Unknown Ur Specific [place] 1.012 (1.003-1.030) 11/04/18 Unknown <15 mg/dl mg/dL (Negative) 11/04/18 Unknown Neg mg/dL (Negative) 11/04/18 Unknown Tr mg/dL (Negative) 11/04/18 Unknown Neg (Negative) 11/04/18 Unknown Neg (Negative) 11/04/18 Unknown Neg (Negative) 11/04/18 Unknown < 2.0 mg/dL (<2.0) 11/04/18 Unknown Ur Leukocyte Esterase Neg (Negative) 11/04/18 Unknown 1.0 /HPF (0.0-6.0) 11/04/18 Unknown 2.0 /HPF (0.0-6.0) 11/04/18 Unknown Few /HPF 11/04/18 Unknown Salicylates < 0.3 mg/dL (2.8-20.0) L 11/04/18 10:07 Acetaminophen < 5.0 ug/mL (10.0-30.0) L 11/04/18 10:07 Active Medications - Current Medications Current Medications: Generic Name Dose Route Start Last Admin Trade Name Freq PRN Reason Stop Dose Admin Acetaminophen 650 mg 11/04/18 13:08 Tylenol PO Q4H PRN Pain, Mild (1-3) Albuterol 2.5 mg 11/04/18 13:08 Proventil IH Q3HRT PRN Shortness Of Breath Amantadine HCl 100 mg 11/04/18 22:00 11/09/18 09:22 Symmetrel PO 100 mg BID MAK Administration Aspirin 81 mg 11/07/18 10:00 11/09/18 09:22 Baby Aspirin PO 81 mg QDAY MAK Administration Atorvastatin Calcium 40 mg 11/04/18 22:00 11/08/18 23:46 Lipitor PO 40 mg QHS MAK Administration Bisacodyl 10 mg 11/04/18 13:08 Dulcolax [place] QDAY PRN Constipation Clopidogrel Bisulfate 75 mg 11/04/18 20:00 11/09/18 09:22 Plavix PO 75 mg QDAY MAK Administration Clotrimazole 1 applic 11/04/18 22:00 11/09/18 09:22 Clotrimazole/Betamethasone TP 1 applic BID MAK Administration Enoxaparin Sodium 40 mg 11/04/18 22:00 11/08/18 23:48 Lovenox SUB-Q 40 mg QDAY@2200 MAK Administration Ferrous Sulfate 325 mg 11/05/18 10:00 11/09/18 09:22 Feosol PO 325 mg QDAY MAK Administration Lactic Acid 1 applic 11/04/18 22:00 11/09/18 09:22 Lac-Hydrin TP 1 applic BID MAK Administration Magnesium Hydroxide 30 ml 11/04/18 13:08 11/08/18 23:45 Milk Of Magnesia PO 30 ml Q4H PRN Administration Constipation Metoclopramide HCl 10 mg 11/04/18 13:08 Reglan PO Q6H PRN Nausea And Vomiting Ondansetron HCl 4 mg 11/04/18 13:08 11/04/18 17:26 Zofran IV 4 mg Q8H PRN Administration Nausea And Vomiting Promethazine HCl 25 mg 11/04/18 13:08 Phenergan [place] Q6H PRN Nausea And Vomiting Sodium Chloride 10 ml 11/04/18 13:08 11/08/18 23:49 Sodium Chloride Flush Syringe 10 Ml IV 10 ml PRN PRN Administration LINE FLUSH
[2018-11-09] MEDS: LOVENOX SUB-Q SCH (21:08)
[2018-11-09] MEDS: SODIUM CHLORIDE FLUSH SYRINGE 10 ML IV PRN (21:09)
[2018-11-10] MEDS: SYMMETREL PO SCH ×2 (09:19→21:06)
[2018-11-10] MEDS: PLAVIX PO SCH (09:20)
[2018-11-10] MEDS: CLOTRIMAZOLE/BETAMETHASONE TP SCH ×2 (09:20→21:05)
[2018-11-10] MEDS: FEOSOL PO SCH (09:20)
[2018-11-10] MEDS: LAC-HYDRIN TP SCH ×2 (09:20→21:05)
[2018-11-10] MEDS: BABY ASPIRIN PO SCH (09:20)
--- NOTE | 2018-11-10 14:11 | Progress Note ---
Assessment and Plan Assessment and plan: Patient is a 58 yo man from [facility] with a history of CVA complicated by RHP, Dysarthria, HTN, and DM type 2 who presents to [facility] ED with left sided weakness. Pt was outside therapeutic window for TPA per ED report. * 2D ECHO conclusions left ventricular chamber size is normal, est EF 50-55%, trace MR, right heart chambers mildly dilated, mild to moderate TR, mild pulmonary hypertension, RVSP calculated at 34mmHg, negative bubble study, technically difficult * CT head Impression: Mild cortical atrophy. Chronic lacunar infarct right and left ganglia no acute intracranial abnormality. * MRI brain wo contrast IMPRESSION: 1. Acute/subacute nonhemorrhagic infarcts involving the left inferior medial cerebellum and the left medulla oblongata. 2. Old left temporal lobe ischemia with Wallerian degeneration of the left brainstem. 3. Moderate cerebral and cerebellar cortical atrophy and extensive chronic white matter microangiopathy. * MRA head wo contrast IMPRESSION: Suspect left vertebral artery occlusion. * Carotid Duplex Bilateral IMPRESSION: No clinically significant areas of stenosis noted bilaterally. ICA Stenosis % per the NASCET criteria is < 50 % on the right and < 50 % on the left. * pCXR Impression: Suspicion of COPD. No acute changes. * CTA neck IMPRESSION: 1. Approximately 60% stenosis proximal right internal carotid artery. 2. Approximately 60% stenosis proximal right vertebral artery and approximately 60-70% stenosis distal right vertebral artery. The right vertebral artery is dominant. 3. Multiple segmental stenoses of the nondominant left vertebral artery, at least one of which appears to be high- grade. 4. Cervical spondylosis with canal and foraminal stenosis. 5. Pulmonary emphysema. 6. Marked degree of periodontal disease. -Acute CVA, stroke in evolution, with new Left hemiparesis: Rehab services, treat with asa/statin -Carotid artery stenosis: treat with plavix/asa/statin and consulted Vascular surgery -Left vertebral artery stenosis: treat medical, consulted Vascular surgery -H/o CVA with right side paralysis -DM type 2: ssi, accucheck -Hypertension, stable: continue present management -Dyslipidemia: treat with statin DVT ppx on sq lovenox, stop the Motrin full code Disposition: continue inpatient care, Subacute Rehab recommended by Physical Therapy Awaiting placement History Interval history: Patient was seen and examined. Follow-up on current diagnosis of CVA. No overnight events reported to me. Patient denies any chest pain, shortness breath, nausea/vomiting or severe headaches. Imaging, nursing note, chart, labs and old chart reviewed. Hospitalist Physical - Physical exam Narrative exam: Gen: thin frail, chronic disable NAD, Awake, Alert, Orientated HEENT: NCAT, EOMI, PERRL, OP Clear Neck: supple, no adenopathy, no thyromegaly, no JVD CVS/Heart: RRR, normal S1S2, pulses present bilaterally Chest/Lungs: CTA B, Symmetrical chest expansion, good air entry bilaterally GI/Abdomen: soft, NTND, good bowel sounds, no guarding or rebound /Bladder: no suprapubic tenderness, no CVA or paraspinal tenderness Extermity/Skin: no c/c/e, no obvious rash MSK: FROM x 3, old right hemiparesis with contracture Neuro: CN 2-12 grossly intact except dyarthria, new focal deficits, left sided weakness with left drift Psych: calm - Constitutional Vitals: Temp Pulse Resp BP Pulse Ox 98.3 F 90 18 112/88 96 11/10/18 12:15 11/10/18 12:15 11/10/18 12:15 11/10/18 12:15 11/10/18 12:15 General appearance: Present: no acute distress Results - Labs CBC & Chem 7: 11/04/18 09:51 11/04/18 10:07 Labs: Laboratory Last Values WBC 6.7 K/mm3 (4.5-11.0) 11/04/18 09:51 RBC 5.13 M/mm3 (3.65-5.03) H 11/04/18 09:51 Hgb 15.4 gm/dl (11.8-15.2) H 11/04/18 09:51 Hct 45.5 % (35.5-45.6) 11/04/18 09:51 MCV 89 fl (84-94) 11/04/18 09:51 MCH 30 pg (28-32) 11/04/18 09:51 MCHC 34 % (32-34) 11/04/18 09:51 RDW 13.3 % (13.2-15.2) 11/04/18 09:51 Plt Count 244 K/mm3 (140-440) 11/04/18 09:51 Lymph % (Auto) 11.0 % (13.4-35.0) L 11/04/18 09:51 [place] % (Auto) 4.4 % (0.0-7.3) 11/04/18 09:51 Eos % (Auto) 0.6 % (0.0-4.3) 11/04/18 09:51 Baso % (Auto) 0.8 % (0.0-1.8) 11/04/18 09:51 Lymph # 0.7 K/mm3 (1.2-5.4) L 11/04/18 09:51 [place] # 0.3 K/mm3 (0.0-0.8) 11/04/18 09:51 Eos # 0.0 K/mm3 (0.0-0.4) 11/04/18 09:51 Baso # 0.1 K/mm3 (0.0-0.1) 11/04/18 09:51 Seg Neutrophils % 83.2 % (40.0-70.0) H 11/04/18 09:51 Seg Neutrophils # 5.6 K/mm3 (1.8-7.7) 11/04/18 09:51 PT 13.9 Sec. (12.2-14.9) 11/04/18 10:07 INR 1.01 (0.87-1.13) 11/04/18 10:07 APTT 23.6 Sec. (24.2-36.6) L 11/04/18 10:07 Sodium 140 mmol/L (137-145) 11/04/18 10:07 Potassium 4.7 mmol/L (3.6-5.0) 11/04/18 10:07 Chloride 102.8 mmol/L (98-107) 11/04/18 10:07 Carbon Dioxide 27 mmol/L (22-30) 11/04/18 10:07 15 mmol/L 11/04/18 10:07 BUN 18 mg/dL (9-20) 11/04/18 10:07 1.2 mg/dL (0.8-1.5) 11/04/18 10:07 Estimated GFR > 60 ml/min 11/04/18 10:07 15 % 11/04/18 10:07 Glucose 127 mg/dL (75-100) H 11/04/18 10:07 POC Glucose 109 (70-105) H 11/07/18 20:50 4.9 % (4-6) 11/04/18 20:26 Lactic Acid 1.40 mmol/L (0.7-2.0) 11/04/18 10:07 Calcium 8.8 mg/dL (8.4-10.2) 11/04/18 10:07 0.50 mg/dL (0.1-1.2) 11/04/18 10:07 AST 17 units/L (5-40) 11/04/18 10:07 ALT 15 units/L (7-56) 11/04/18 10:07 141 units/L (35-129) H 11/04/18 10:07 25.0 umol/L (25-60) 11/04/18 10:07 < 0.010 ng/mL (0.00-0.029) 11/04/18 13:13 6.8 g/dL (6.3-8.2) 11/04/18 10:07 4.2 g/dL (3.9-5) 11/04/18 10:07 1.6 % 11/04/18 10:07 Triglycerides 65 mg/dL (2-149) 11/04/18 13:13 Cholesterol 171 mg/dL (50-199) 11/04/18 13:13 103 mg/dL (50-130) 11/04/18 13:13 62 mg/dL (40-59) H 11/04/18 13:13 2.75 % 11/04/18 13:13 Yellow (Yellow) 11/04/18 Unknown Clear (Clear) 11/04/18 Unknown 5.0 (5.0-7.0) 11/04/18 Unknown Ur Specific [place] 1.012 (1.003-1.030) 11/04/18 Unknown <15 mg/dl mg/dL (Negative) 11/04/18 Unknown Neg mg/dL (Negative) 11/04/18 Unknown Tr mg/dL (Negative) 11/04/18 Unknown Neg (Negative) 11/04/18 Unknown Neg (Negative) 11/04/18 Unknown Neg (Negative) 11/04/18 Unknown < 2.0 mg/dL (<2.0) 11/04/18 Unknown Ur Leukocyte Esterase Neg (Negative) 11/04/18 Unknown 1.0 /HPF (0.0-6.0) 11/04/18 Unknown 2.0 /HPF (0.0-6.0) 11/04/18 Unknown Few /HPF 11/04/18 Unknown Salicylates < 0.3 mg/dL (2.8-20.0) L 11/04/18 10:07 Acetaminophen < 5.0 ug/mL (10.0-30.0) L 11/04/18 10:07 Active Medications - Current Medications Current Medications: Generic Name Dose Route Start Last Admin Trade Name Freq PRN Reason Stop Dose Admin Acetaminophen 650 mg 11/04/18 13:08 Tylenol PO Q4H PRN Pain, Mild (1-3) Albuterol 2.5 mg 11/04/18 13:08 Proventil IH Q3HRT PRN Shortness Of Breath Amantadine HCl 100 mg 11/04/18 22:00 11/10/18 09:19 Symmetrel PO 100 mg BID MAK Administration Aspirin 81 mg 11/07/18 10:00 11/10/18 09:20 Baby Aspirin PO 81 mg QDAY MAK Administration Atorvastatin Calcium 40 mg 11/04/18 22:00 11/09/18 21:08 Lipitor PO 40 mg QHS MAK Administration Bisacodyl 10 mg 11/04/18 13:08 Dulcolax [place] QDAY PRN Constipation Clopidogrel Bisulfate 75 mg 11/04/18 20:00 11/10/18 09:20 Plavix PO 75 mg QDAY MAK Administration Clotrimazole 1 applic 11/04/18 22:00 11/10/18 09:20 Clotrimazole/Betamethasone TP 1 applic BID MAK Administration Enoxaparin Sodium 40 mg 11/04/18 22:00 11/09/18 21:08 Lovenox SUB-Q 40 mg QDAY@2200 MAK Administration Ferrous Sulfate 325 mg 11/05/18 10:00 11/10/18 09:20 Feosol PO 325 mg QDAY MAK Administration Lactic Acid 1 applic 11/04/18 22:00 11/10/18 09:20 Lac-Hydrin TP 1 applic BID MAK Administration Magnesium Hydroxide 30 ml 11/04/18 13:08 05/10/19 23:45 Milk Of Magnesia PO 30 ml Q4H PRN Administration Constipation Metoclopramide HCl 10 mg 11/04/18 13:08 Reglan PO Q6H PRN Nausea And Vomiting Ondansetron HCl 4 mg 11/04/18 13:08 11/04/18 17:26 Zofran IV 4 mg Q8H PRN Administration Nausea And Vomiting Promethazine HCl 25 mg 11/04/18 13:08 Phenergan [place] Q6H PRN Nausea And Vomiting Sodium Chloride 10 ml 11/04/18 13:08 11/09/18 21:09 Sodium Chloride Flush Syringe 10 Ml IV 10 ml PRN PRN Administration LINE FLUSH
[2018-11-10] MEDS: LOVENOX SUB-Q SCH (21:06)
[2018-11-11] MEDS: FEOSOL PO SCH (09:25)
[2018-11-11] MEDS: SYMMETREL PO SCH (09:25)
[2018-11-11] MEDS: PLAVIX PO SCH (09:25)
[2018-11-11] MEDS: LAC-HYDRIN TP SCH (09:25)
[2018-11-11] MEDS: BABY ASPIRIN PO SCH (09:25)
[2018-11-11] MEDS: CLOTRIMAZOLE/BETAMETHASONE TP SCH (09:26)
--- NOTE | 2018-11-11 10:12 | Discharge Summary ---
Providers - Providers Date of Admission: 11/04/18 13:08 Date of discharge: 11/11/18 Attending physician: MAXIMILIAN DUMONT 11/04/18 Consult to Physician [CONS] Routine Comment: Consulting Provider: GUILHERME MORRIS Physician Instructions: Reason For Exam: cva 11/04/18 13:08 Occupational Therapy Evaluate and Treat [CONS] Routine Comment: Reason For Exam: Neuro deficits Physical Therapy Evaluation and Treat [CONS] Routine Comment: Reason For Exam: Neuro deficits 11/04/18 13:09 Speech Therapy Evaluation and Treat [CONS] Routine Reason For Exam: swallow eval 11/06/18 12:16 Consult to Physician [CONS] Routine Comment: Consulting Provider: MONIQUE STERN Physician Instructions: Reason For Exam: Carotid stenosis Primary care physician: MADDY FORTUNE Hospitalization Condition: Stable Hospital course: Patient is a 58 yo man from [facility] with a history of CVA complicated by RHP, Dysarthria, HTN, and DM type 2 who presents to [facility] ED with left sided weakness. Pt was outside therapeutic window for TPA per ED report. * 2D ECHO conclusions left ventricular chamber size is normal, est EF 50-55%, trace MR, right heart chambers mildly dilated, mild to moderate TR, mild pulmonary hypertension, RVSP calculated at 34mmHg, negative bubble study, technically difficult * CT head Impression: Mild cortical atrophy. Chronic lacunar infarct right and left ganglia no acute intracranial abnormality. * MRI brain wo contrast IMPRESSION: 1. Acute/subacute nonhemorrhagic infarcts involving the left inferior medial cerebellum and the left medulla oblongata. 2. Old left temporal lobe ischemia with Wallerian degeneration of the left brainstem. 3. Moderate cerebral and cerebellar cortical atrophy and extensive chronic white matter microangiopathy. * MRA head wo contrast IMPRESSION: Suspect left vertebral artery occlusion. * Carotid Duplex Bilateral IMPRESSION: No clinically significant areas of stenosis noted bilaterally. ICA Stenosis % per the NASCET criteria is < 50 % on the right and < 50 % on the left. * pCXR Impression: Suspicion of COPD. No acute changes. * CTA neck IMPRESSION: 1. Approximately 60% stenosis proximal right internal carotid artery. 2. Approximately 60% stenosis proximal right vertebral artery and approximately 60-70% stenosis distal right vertebral artery. The right vertebral artery is dominant. 3. Multiple segmental stenoses of the nondominant left vertebral artery, at least one of which appears to be high- grade. 4. Cervical spondylosis with canal and foraminal stenosis. 5. Pulmonary emphysema. 6. Marked degree of periodontal disease. -Acute CVA, stroke in evolution, with new Left hemiparesis: Rehab services, treat with asa/statin -Carotid artery stenosis: treat with plavix/asa/statin and consulted Vascular surgery, input noted -Left vertebral artery stenosis: treat medical, consulted Vascular surgery -H/o CVA with right side paralysis -DM type 2: ssi, accucheck -Hypertension, stable: continue present management -Dyslipidemia: treat with statin DVT ppx on sq lovenox, stop the Motrin full code Disposition: d/c to [facility] Disposition: [id number] [facility] CERT Time spent for discharge: 34 minutes Core Measure Documentation - Palliative Care Palliative Care/ Comfort Measures: Not Applicable - Core Measures Any of the following diagnoses?: stroke - VTE Discharge Requirements Deep Vein Thrombosis/Pulmonary Embolism Present on Admission: No Has pt received <5 days of overlap therapy or INR<2.0: No Anticoagulant overlap therapy prescribed at discharge: No Contraindication No Overlap Therapy order at DC: Not Indicated - Stroke Discharge Requirements Statin for LDL = or >70 mg/dl on DC: Yes Anticoag for atrial fib/atrial flutter: Not Applicable Antithrombotic for ischemic stroke: Yes Exam - Physical Exam Narrative exam: Gen: thin frail, chronic disable NAD, Awake, Alert, Orientated HEENT: NCAT, EOMI, PERRL, OP Clear Neck: supple, no adenopathy, no thyromegaly, no JVD CVS/Heart: RRR, normal S1S2, pulses present bilaterally Chest/Lungs: CTA B, Symmetrical chest expansion, good air entry bilaterally GI/Abdomen: soft, NTND, good bowel sounds, no guarding or rebound /Bladder: no suprapubic tenderness, no CVA or paraspinal tenderness Extermity/Skin: no c/c/e, no obvious rash MSK: FROM x 3, old right hemiparesis with contracture, 3/5 left extremity strength Neuro: CN 2-12 grossly intact except dyarthria/expressive aphasia, new focal deficits, left sided weakness with left drift Psych: calm - Constitutional Vitals: Temp Pulse Resp BP Pulse Ox 98.4 F 88 24 115/84 98 11/11/18 05:01 11/11/18 05:00 11/11/18 05:01 11/11/18 05:01 11/11/18 05:00 Plan Activity: up only with assistance, fall precautions, other (no strenous activity until cleared by PCP) Diet: regular Follow up with: MADDY FORTUNE MD [Primary Care Provider] - 3-5 Days Prescriptions: AtorvaSTATin [Lipitor] 40 mg PO QHS #30 tablet Aspirin [Aspirin BABY CHEW TAB] 81 mg PO QDAY #30 tab.chew Clopidogrel [Plavix] 75 mg PO QDAY #15 tablet
[2018-11-11 11:27] VITALS: BP 108/82
== END 2018-11-11 12:15 | DRG 65 ==
LOC: ED 08:53 → 4A 13:08 → 3A 11-08 15:21
PROVIDERS: ADMIT Internal Medicine; ATTEND Internal Medicine
DX: I63.9 Cerebral infarction, unspecified (principal); I69.354 Hemiplegia and hemiparesis following cerebral infarction affecting left non-dominant side; I69.351 Hemiplegia and hemiparesis following cerebral infarction affecting right dominant side; E11.9 Type 2 diabetes mellitus without complications; I10 Essential (primary) hypertension; I27.20 Pulmonary hypertension, unspecified; I65.29 Occlusion and stenosis of unspecified carotid artery; I65.02 Occlusion and stenosis of left vertebral artery; G83.9 Paralytic syndrome, unspecified; E78.2 Mixed hyperlipidemia; R47.81 Slurred speech; Z82.49 Family history of ischemic heart disease and other diseases of the circulatory system; Z83.3 Family history of diabetes mellitus; Z79.899 Other long term (current) drug therapy
CPT/HCPCS: 36415; 70450; 70498; 70544; 70551; 71045; 80048; 80053; 80061; 80320; 81001; 82140; 82962; 83036; 84484; 85025; 85610; 85730; 87040; 87086; 93005; 93010; 93306; 93880; 94760; G0378; A9270-GY; G0480; J1650; J2405; Q9967

== ENCOUNTER 2019-02-24 13:46 | Outpatient (CLI) | payer MEDICARE ==
[2019-02-24 14:29] LABS: Albumin 3.8 g/dL (3.9-5); BUN/Creatinine Ratio 15; Blood Urea Nitrogen 19 mg/dL (9-20); Calcium 8.9 mg/dL (8.4-10.2); Hemolysis Index 5
== END 2019-02-24 13:47 | disposition home or self-care (01) ==
LOC: LAB 13:46
PROVIDERS: ATTEND Internal Medicine Nephrology
DX: I12.9 Hypertensive chronic kidney disease with stage 1 through stage 4 chronic kidney disease, or unspecified chronic kidney disease (principal); N18.3 Chronic kidney disease, stage 3 (moderate)
CPT/HCPCS: 36415; 80048; 82040; 84100